=== PATIENT | female | born 1980 | race Caucasian/White ===

== ENCOUNTER → 2016-08-12 07:43 | Outpatient (CLI) | payer MEDICARE ==
[2009-11-29 08:10] VITALS: BMI 13.1
== END | disposition home or self-care (01) ==
LOC: D.CT 07:43
DX: R93.8 Abnormal findings on diagnostic imaging of other specified body structures (principal)

== ENCOUNTER 2016-08-23 18:17 | Emergency (ER) | payer MEDICARE ==
[2009-11-29 08:10] VITALS: BMI 13.1
[2016-08-23 20:05] LABS: BASOPHILS 0.1 % (0.0-2.0); EOSINOPHILS 0 % (0-7); HEMATOCRIT 39.2 % (36.0-48.0); HEMOGLOBIN 13.1 g/dL (12-16); IMMATURE GRANULOCYTES 0.2 % (0-5); LYMPHOCYTES 4.9 % (15-50); MCH 29.8 pg (26.0-34.0); MCHC 33.4 g/dL (31.0-37.0); MCV 89.1 fL (80.0-100.0); MONOCYTES 2.4 % (2-11); NEUTROPHILS 92.4 % (40-80); RDW 12.5 % (11.5-14.5)
[2016-08-23 20:08] LABS: PLATELET COUNT 203 10x3/uL (130-400)
[2016-08-23 20:26] LABS: ALBUMIN 4.5 g/dL (3.4-5.0); ALKALINE PHOSPHATASE 74 U/L (46-116); ALT (SGPT) 20 U/L (10-68); BILIRUBIN - TOTAL 1.91 mg/dL (0.2-1.3); CALC OSMOLALITY 285 mosm/kg (275-300); CALCIUM 9.2 mg/dL (8.5-10.1); CARBON DIOXIDE 26.2 mmol/L (21.0-32.0); CHLORIDE - SERUM 103 mmol/L (98-107); CREATININE - SERUM 0.8 mg/dL (0.6-1.3); POTASSIUM - SERUM 3.4 mmol/L (3.5-5.1); PROTEIN - SERUM 7.8 g/dL (6.4-8.2); SODIUM 142 mmol/L (136-145); UREA NITROGEN 13 mg/dL (7-18); eGFR NON AFRICAN AMERICAN 86 mL/min (90-120)
[2016-08-23 20:27] LABS: GLUCOSE 148 mg/dL (74-106)
[2016-08-23 20:52] LABS: APPEARANCE HAZY (CLEAR); BILIRUBIN NEGATIVE (NEGATIVE); COLOR YELLOW (YELLOW); GLUCOSE NEGATIVE (NEGATIVE); HCG URINE NEGATIVE (NEGATIVE); KETONE LARGE mg/dL (NEGATIVE); LEUKOCYTE ESTERASE TRACE (NEGATIVE); NITRITE NEGATIVE (NEGATIVE); PROTEIN TRACE mg/dL (NEGATIVE); UROBILINOGEN NORMAL (NORMAL)
[2016-08-23 20:55] LABS: BACTERIA MODERATE /hpf (NONE SEEN); MUCUS >1+ /lpf (NONE SEEN); RED CELLS - URINE 0-5 /hpf (0-5)
== END 2016-08-23 21:22 | disposition home or self-care (01) ==
LOC: D.ER 18:17
PROVIDERS: Emergency Medicine; Nurse Practitioner Acute Care
DX: K52.9 Noninfective gastroenteritis and colitis, unspecified (principal); E87.6 Hypokalemia

== ENCOUNTER 2017-07-14 15:29 | Emergency (ER) | payer MEDICARE ==
[2009-11-29 08:10] VITALS: BMI 13.1
== END 2017-07-14 16:28 | disposition home or self-care (01) ==
LOC: D.ER 15:29
DX: J06.9 Acute upper respiratory infection, unspecified (principal); J20.9 Acute bronchitis, unspecified

== ENCOUNTER 2017-07-18 17:50 | Emergency (ER) | payer MEDICARE ==
[2009-11-29 08:10] VITALS: BMI 13.1
[2017-07-18 18:21] LABS: HEMATOCRIT 40.4 % (36.0-48.0); HEMOGLOBIN 13.8 g/dL (12-16); LYMPHOCYTES 20.6 % (15-50); MCH 29.7 pg (26.0-34.0); MCHC 34.2 g/dL (31.0-37.0); MCV 86.9 fL (80.0-100.0); MEAN PLATELET VOLUME 12.5 fL (7.4-10.4); NEUTROPHILS 69.6 % (40-80); RBC 4.65 10x6/uL (4.00-5.40); RDW 12.8 % (11.5-14.5); WBC 5.5 10x3/uL (4.8-10.8)
[2017-07-18 18:23] LABS: PLATELET COUNT 114 10x3/uL (130-400)
== END 2017-07-18 20:00 | disposition home or self-care (01) ==
LOC: D.ER 17:50
PROVIDERS: Emergency Medicine
DX: J11.1 Influenza due to unidentified influenza virus with other respiratory manifestations (principal)

== ENCOUNTER 2018-04-02 23:27 | Emergency (ER) | payer MEDICARE ==
[~2018-04-02] VITALS: Ht 175.3 cm; Wt 45.5 kg
[2018-04-02 23:34] VITALS: Ht 175.3 cm; Wt 45.5 kg
[2018-04-02 23:55] LABS: BASOPHILS 0 % (0-2); EOSINOPHILS 0 % (0-7); HEMATOCRIT 41.1 % (36.0-48.0); HEMOGLOBIN 14.1 g/dL (12-16); IMMATURE GRANULOCYTES 0.3 % (0-5); LYMPHOCYTES 3.5 % (15-50); MCH 30.4 pg (26.0-34.0); MCHC 34.3 g/dL (31.0-37.0); MCV 88.6 fL (80.0-100.0); MEAN PLATELET VOLUME 12.6 fL (7.4-10.4); MONOCYTES 2.2 % (2-11); RBC 4.64 10x6/uL (4.00-5.40); RDW 12.3 % (11.5-14.5); WBC 13.4 10x3/uL (4.8-10.8)
[2018-04-02 23:57] LABS: PLATELET COUNT 187 10x3/uL (130-400)
[2018-04-03 00:08] LABS: ALBUMIN 4.4 g/dL (3.4-5.0); ANION GAP 17.1 mmol/L (8-16); BILIRUBIN - TOTAL 1.6 mg/dL (0.2-1.3); CALCIUM 9.2 mg/dL (8.5-10.1); CARBON DIOXIDE 22.5 mmol/L (21.0-32.0); POTASSIUM - SERUM 3.6 mmol/L (3.5-5.1)
[2018-04-03 01:03] LABS: AMORPHOUS SEDIMENT <1+ /lpf (NONE SEEN); APPEARANCE HAZY (CLEAR); BACTERIA MODERATE /hpf (NONE SEEN); BILIRUBIN NEGATIVE (NEGATIVE); COLOR DK YELLOW (YELLOW); EPITHELIAL CELLS 0-5 /hpf (0-5); GLUCOSE NEGATIVE (NEGATIVE); KETONE MODERATE mg/dL (NEGATIVE); MUCUS >1+ /lpf (NONE SEEN); NITRITE NEGATIVE (NEGATIVE); PROTEIN NEGATIVE (NEGATIVE); UROBILINOGEN NORMAL (NORMAL); WHITE CELLS - URINE 0-5 /hpf (0-5)
[2018-04-03 01:21] VITALS: BP 121/71
[2018-04-03] MEDS ORDERED: FLAGYL500 MG PO (01:31)
[2018-04-03] MEDS ORDERED: CIPRO500 MG PO (01:31)
[2018-04-03] MEDS ORDERED: ZOFRAN ODT4 MG/UDTAB PO (01:31)
[2018-04-03] MEDS ORDERED: PHENERGAN25 MG RC (18:20)
== END 2018-04-03 01:21 | disposition home or self-care (01) ==
LOC: D.ER 23:27
PROVIDERS: Emergency Medicine
DX: K52.9 Noninfective gastroenteritis and colitis, unspecified (principal); R11.2 Nausea with vomiting, unspecified

== ENCOUNTER 2018-04-03 15:40 | Emergency (ER) | payer MEDICARE ==
[~2018-04-03] VITALS: Ht 175.3 cm; Wt 44.5 kg
[~2018-04-03 15:40] MED LIST: CIPRO500 MG PO; FLAGYL500 MG PO; ZOFRAN ODT4 MG/UDTAB PO
[2018-04-03 15:49] VITALS: Ht 175.3 cm; Wt 44.5 kg
[2018-04-03 16:28] LABS: BASOPHILS 0.2 % (0-2); EOSINOPHILS 0 % (0-7); HEMATOCRIT 41.1 % (36.0-48.0); IMMATURE GRANULOCYTES 0.2 % (0-5); LYMPHOCYTES 6.9 % (15-50); MCH 30.5 pg (26.0-34.0); MCHC 34.1 g/dL (31.0-37.0); MCV 89.5 fL (80.0-100.0); MEAN PLATELET VOLUME 12.7 fL (7.4-10.4); MONOCYTES 4.6 % (2-11); NEUTROPHILS 88.1 % (40-80); PLATELET COUNT 210 10x3/uL (130-400); RBC 4.59 10x6/uL (4.00-5.40); RDW 12.5 % (11.5-14.5)
[2018-04-03 16:43] LABS: ALBUMIN 4.7 g/dL (3.4-5.0); ALKALINE PHOSPHATASE 68 U/L (46-116); ALT (SGPT) 36 U/L (10-68); CALC OSMOLALITY 284 mosm/kg (275-300); CALCIUM 9.3 mg/dL (8.5-10.1); CARBON DIOXIDE 24.3 mmol/L (21.0-32.0); CHLORIDE - SERUM 103 mmol/L (98-107); CREATININE - SERUM 0.8 mg/dL (0.6-1.3); POTASSIUM - SERUM 3.4 mmol/L (3.5-5.1); PROTEIN - SERUM 8.2 g/dL (6.4-8.2); SODIUM 142 mmol/L (136-145); UREA NITROGEN 14 mg/dL (7-18); eGFR NON AFRICAN AMERICAN 86 mL/min (90-120)
[2018-04-03 16:46] LABS: GLUCOSE 120 mg/dL (74-106)
[2018-04-03 17:01] LABS: HCG SERUM NEGATIVE (NEGATIVE)
[2018-04-03 17:04] LABS: APTT 26.1 SECONDS (22.8-39.4); INR 1.17 (0.85-1.17); PROTIME 14.5 SECONDS (11.6-15.0)
[2018-04-03] MEDS ORDERED: PHENERGAN25 MG RC (18:20)
[2018-04-03 18:26] LABS: APPEARANCE CLEAR (CLEAR); COLOR YELLOW (YELLOW); GLUCOSE NEGATIVE (NEGATIVE); KETONE LARGE mg/dL (NEGATIVE); NITRITE NEGATIVE (NEGATIVE); PROTEIN 1+ mg/dL (NEGATIVE); SPECIFIC GRAVITY 1.015 (1.005-1.020)
[2018-04-03 18:27] LABS: BILIRUBIN NEGATIVE (NEGATIVE); UROBILINOGEN NORMAL (NORMAL)
[2018-04-03 18:29] LABS: BACTERIA FEW /hpf (NONE SEEN); EPITHELIAL CELLS 0-5 /hpf (0-5); RED CELLS - URINE 0-5 /hpf (0-5); WHITE CELLS - URINE 0-5 /hpf (0-5)
[2018-04-03 18:59] VITALS: BP 105/68
== END 2018-04-03 18:59 | disposition home or self-care (01) ==
LOC: D.ER 15:40
PROVIDERS: Family Medicine
DX: R11.2 Nausea with vomiting, unspecified (principal); F12.188 Cannabis abuse with other cannabis-induced disorder

== ENCOUNTER 2019-08-16 16:57 | Emergency (ER) | payer MEDICARE, MEDICAID ==
[~2019-08-16] VITALS: Ht 175.3 cm; Wt 54.5 kg
[~2019-08-16 16:57] MED LIST changes: +PHENERGAN25 MG RC
[2019-08-16 17:07] VITALS: Ht 175.3 cm; Wt 54.5 kg
[2019-08-16 17:31] LABS: BASOPHILS 0.1 % (0-2); EOSINOPHILS 0 % (0-7); HEMATOCRIT 40.6 % (36.0-48.0); HEMOGLOBIN 13.7 g/dL (12-16); IMMATURE GRANULOCYTES 0.2 % (0-5); LYMPHOCYTES 5.9 % (15-50); MCH 29.8 pg (26.0-34.0); MCHC 33.7 g/dL (31.0-37.0); MCV 88.3 fL (80.0-100.0); MEAN PLATELET VOLUME 12.2 fL (7.4-10.4); NEUTROPHILS 86.8 % (40-80); PLATELET COUNT 247 10x3/uL (130-400); RDW 12.9 % (11.5-14.5); WBC 13.3 10x3/uL (4.8-10.8)
[2019-08-16 17:37] LABS: BACTERIA MODERATE /hpf (NEGATIVE); BILIRUBIN NEGATIVE (NEGATIVE); EPITHELIAL CELLS 0-5 /hpf (0-5); GLUCOSE NEGATIVE (NEGATIVE); KETONE MODERATE mg/dL (NEGATIVE); NITRITE NEGATIVE (NEGATIVE); RED CELLS - URINE 0-5 /hpf (0-5); SPECIFIC GRAVITY 1.025 (1.005-1.020); UROBILINOGEN NORMAL (NORMAL); WHITE CELLS - URINE 0-5 /hpf (NEGATIVE)
[2019-08-16 17:41] LABS: ANION GAP 17.7 mmol/L (8-16); CALCIUM 9.2 mg/dL (8.5-10.1); CARBON DIOXIDE 21.8 mmol/L (21.0-32.0); CREATININE - SERUM 0.9 mg/dL (0.6-1.3); POTASSIUM - SERUM 3.5 mmol/L (3.5-5.1)
[2019-08-16 17:54] LABS: ALBUMIN 4.6 g/dL (3.4-5.0); BILIRUBIN - TOTAL 2.12 mg/dL (0.2-1.3)
[2019-08-16] MEDS ORDERED: ZOFRAN ODT4 MG/UDTAB PO (19:12)
[2019-08-16] MEDS ORDERED: BENTYL 20 MG TA20 MG PO (19:12)
[2019-08-16 19:36] VITALS: BP 141/83
== END 2019-08-16 19:36 | disposition home or self-care (01) ==
LOC: D.ER 16:57
PROVIDERS: Emergency Medicine
DX: R11.2 Nausea with vomiting, unspecified (principal); R19.7 Diarrhea, unspecified; R10.11 Right upper quadrant pain; A08.4 Viral intestinal infection, unspecified

== ENCOUNTER 2019-08-17 06:57 | Observation (INO) | payer MEDICARE, MEDICAID ==
[~2019-08-17] VITALS: Ht 175.3 cm; Wt 54.5 kg
[~2019-08-17 06:57] MED LIST changes: +BENTYL 20 MG TA20 MG PO
[2019-08-17 07:50] LABS: BASOPHILS 0.1 % (0-2); EOSINOPHILS 0.1 % (0-7); HEMATOCRIT 42.5 % (36.0-48.0); HEMOGLOBIN 14.3 g/dL (12-16); IMMATURE GRANULOCYTES 0.1 % (0-5); LYMPHOCYTES 5.9 % (15-50); MCH 29.9 pg (26.0-34.0); MCHC 33.6 g/dL (31.0-37.0); MCV 88.9 fL (80.0-100.0); MEAN PLATELET VOLUME 12.4 fL (7.4-10.4); MONOCYTES 5.8 % (2-11); PLATELET COUNT 272 10x3/uL (130-400); RBC 4.78 10x6/uL (4.00-5.40); RDW 12.8 % (11.5-14.5); WBC 14.1 10x3/uL (4.8-10.8)
[2019-08-17 07:55] LABS: ANION GAP 15.7 mmol/L (8-16); CALCIUM 9.2 mg/dL (8.5-10.1); CARBON DIOXIDE 22.7 mmol/L (21.0-32.0); CREATININE - SERUM 1.1 mg/dL (0.6-1.3); POTASSIUM - SERUM 3.4 mmol/L (3.5-5.1)
[2019-08-17 08:00] VITALS: BP 121/78
[2019-08-17 08:00] LABS: ALBUMIN 4.7 g/dL (3.4-5.0); BILIRUBIN - TOTAL 2.42 mg/dL (0.2-1.3); PROTEIN - SERUM 8.1 g/dL (6.4-8.2)
[2019-08-17 09:00] VITALS: BP 140/89
--- NOTE | 2019-08-17 10:59 | NUR ---
RCVED PT FROM ER, COMPLAINING OF N/V BUT STATES IT BETTER SINCE SHE RCVED MEDS IN THE ER. DENIES NEEDS AT THIS TIME, WILL CONT TO MONITOR.
[2019-08-17 11:33] VITALS: BP 109/64; Ht 175.3 cm; Wt 54.5 kg
[2019-08-17 16:16] VITALS: BP 111/78
[2019-08-17 20:00] VITALS: BP 128/68
--- NOTE | 2019-08-17 20:30 | NUR ---
PT LYING IN BE AWAKE ALERT AND ORIENTED x4. NO SIGNS OR SYMPTOMS OF DISTRESS NOTED. RESPIRATIONS EVEN AND UNLABORED. NO COMPLAINTS AT THIS TIME. PT STATED LAST BOWELL MOVEMENT WAS 08/16/19. CALL LIGHT WITH IN REACH AND BED IS IN LOWEST POSITON. PT ENCOURAGED TO CALL FOR HELP WHEN NEEDED. WILL CONTIUE TO MONITOR
--- NOTE | 2019-08-17 21:45 | NUR ---
PT REQUEST TO TAKE SHOWER. IV SALINE LOCKED AND COVERED. NO SIGNS OF DISTRESS. PT INSTRUCTED HOW TO USE BATHROOM CALL LIGHT. GAIT IS STEADY. WILL CONTINUE TO MONITOR.
[2019-08-18] VITALS: BP 100/57
--- NOTE | 2019-08-18 02:40 | NUR ---
PRN PAIN MEDICATION AND COMPAZINE GIVEN. FOR PAIN LEVEL 7/10. PT TOLERATING WELL NO SIGNS OF DISTRESS NOTED. CALL LIGHT WITH IN REACH AND BED IS IN LOWEST POSITON. WILL CONTINUE TO MOITOR.
[2019-08-18 04:00] VITALS: BP 129/78
--- NOTE | 2019-08-18 04:22 | NUR ---
I have reviewed this patient and I concur with the Shift Assessment completed by the Licensed Practical Nurse today this shift.
--- NOTE | 2019-08-18 05:16 | NUR ---
I have reviewed this patient and I concur with the Shift Assessment completed by the Licensed Practical Nurse today this shift.
[2019-08-18 05:57] LABS: BASOPHILS 0.2 % (0-2); EOSINOPHILS 0.1 % (0-7); HEMATOCRIT 35.5 % (36.0-48.0); HEMOGLOBIN 11.4 g/dL (12-16); IMMATURE GRANULOCYTES 0.2 % (0-5); LYMPHOCYTES 27.6 % (15-50); MCH 29.4 pg (26.0-34.0); MCHC 32.1 g/dL (31.0-37.0); MCV 91.5 fL (80.0-100.0); MEAN PLATELET VOLUME 12.3 fL (7.4-10.4); MONOCYTES 10.6 % (2-11); NEUTROPHILS 61.3 % (40-80); PLATELET COUNT 180 10x3/uL (130-400); RBC 3.88 10x6/uL (4.00-5.40); RDW 12.9 % (11.5-14.5); WBC 10.1 10x3/uL (4.8-10.8)
--- NOTE | 2019-08-18 06:02 | NUR ---
prn pain medication and compazinegiven for pain and neasua. pt encouraged to call for help when getting in and out of bed. call light with in reach will continue to monitor
[2019-08-18 06:26] LABS: CALCIUM 8.4 mg/dL (8.5-10.1); CARBON DIOXIDE 23.5 mmol/L (21.0-32.0); CHLORIDE - SERUM 111 mmol/L (98-107); POTASSIUM - SERUM 3.6 mmol/L (3.5-5.1); SODIUM 148 mmol/L (136-145); UREA NITROGEN 18 mg/dL (7-18); eGFR NON AFRICAN AMERICAN 85 mL/min (90-120)
[2019-08-18 06:29] LABS: CALC OSMOLALITY 294 mosm/kg (275-300); CREATININE - SERUM 0.8 mg/dL (0.6-1.3); GLUCOSE 89 mg/dL (74-106)
--- NOTE | 2019-08-18 06:55 | NUR ---
ALERT AND ORIENTED. NO C/O PAIN. NO S/S OF ACUTE DISTRESS NOTED. STRICT I&O. IV TO LEFT HAND, NS INFUSING @ 100ML/HR. SITE PATENT WITHOUT REDNESS OR SWELLING. DENIES ANY NEEDS AT THIS TIME. CALL LIGHT IN REACH. WILL CONTINUE TO MONITOR.
[2019-08-18 08:24] VITALS: BP 110/61
--- NOTE | 2019-08-18 09:33 | NUR ---
I have reviewed this patient and I concur with the Shift Assessment completed by the Licensed Practical Nurse today this shift.
--- NOTE | 2019-08-18 10:35 | NUR ---
IV TO LEFT HAND INFILTRATED. DISCONTINUED IV, CATHETER TIP INTACT. RESITED IV TO RIGHT FOREARM, 22 GA X STICK WITH GOOD BLOOD RETURN. APPLIED WARM PACK TO LEFT HAND. CALL LIGHT IN REACH. WILL CONTINUE TO MONITOR.
[2019-08-18] MEDS ORDERED: ZOFRAN ODT4 MG/UDTAB PO (11:08)
[2019-08-18] MEDS ORDERED: PROTONIX40 MG PO (11:08)
[2019-08-18 12:10] VITALS: BP 121/79
--- NOTE | 2019-08-18 12:22 | NUR ---
ALL DISCHARGE INSTRUCTIONS COVERED WITH PT AND PT FRIEND AT BEDSIDE. PIV REMOVED FROM RIGHT FA WITH CATHETER TIP INTACT. DRESSING APPLIED. PT DENIES FURTHER QUESTIONS/CONCERNS/NEEDS AT THIS TIME. ALL DISCHARGE PAPERS SIGNED. SIGNED DISCHARGE PAPERS PLACED IN PT CHART. PT TO NOTIFY NURSE WHEN READY FOR TRANSPORT FROM ROOM.
--- NOTE | 2019-08-18 12:30 | NUR ---
PT TRANSPORTED FROM ROOM VIA WHEELCHAIR AND ESCORTED BY THIS NURSE OUT FOR TRANSPORT HOME. PT DENIES FURTHER QUESTIONS/CONCERNS/NEEDS. PT STATES THAT SHE DOES HAVE ALL PERSONAL BELONGINGS.
--- NOTE | 2019-08-19 12:50 | MORECARE ---
CASE MANAGEMENT DISCHARGE SUMMARY PATIENT: ALEENA LOPEZ UNIT: [id number] ADM DATE: 08/17/19 AGE: 38 : 82 SEX: F ROOM/BED: D.[facility] AUTHOR: OSMEL HARRIS PHYSICIAN: REFERRING PHYSICIAN: HARMAN HARTMAN MD DATE OF SERVICE: 08/19/19 Discharge Plan Patient Name: ALEENA LOPEZ Facility: [facility]:[place] : 1980 Planned Disposition: Anticipated Discharge Date: Discharge Date: 08/18/2019 Expected LOS: Initial Reviewer: [id number] Initial Review Date: 08/17/2019 Generated: 08/19/19 1:50 pm Coverage Notice Reviewer: [email or web address] Matt Castillo Notice Issued Date-Time: 08/17/2019 16:13 Notice Type: Medicare Outpatient Observation Notice Notice Delivered To: Patient Relationship to Patient: Self Optical Lab Technician Name: Delivery Method: HAND - Hand Delivered Geni Days: Prior Verbal Notification: Recipient Understood Notice: Yes Recipient Signature: Yes Med Rec Note Co-signed by Attending: Coverage Notice Comment: CIPRIANO explained, signed, given, copy placed in MR Patient Name: ALEENA LOPEZ Page [phone] at 1250 All edits/amendments must be made on the electronic document DICTATION DATE: 08/19/19 1250 PRISON KEEPER: DM 08/19/19 1250 RPT#: [id number] DC DATE:08/18/19 STATUS: DIS IN [facility] [id number] [place] [address] END OF REPORT
== END 2019-08-18 13:08 | disposition home or self-care (01) ==
LOC: D.ER 06:57 → OBSVTIME 09:32 → D.MS 09:32
PROVIDERS: Family Medicine; ADMIT Emergency Medicine; ATTEND Emergency Medicine
DX: K52.9 Noninfective gastroenteritis and colitis, unspecified (principal); R11.2 Nausea with vomiting, unspecified; E86.0 Dehydration; F12.90 Cannabis use, unspecified, uncomplicated

== ENCOUNTER 2019-09-20 19:00 | Emergency (ER) | payer MEDICARE, MEDICAID ==
[2019-08-17 11:33] VITALS: BMI 17.7
[~2019-09-20 19:00] MED LIST changes: +PROTONIX40 MG PO
[2019-09-21] MEDS ORDERED: ZOFRAN8 MG PO (10:37)
== END 2019-09-20 19:25 | disposition left against medical advice (07) ==
LOC: D.ER 19:00
DX: R11.2 Nausea with vomiting, unspecified (principal); R19.7 Diarrhea, unspecified

== ENCOUNTER 2019-09-21 07:06 | Emergency (ER) | payer MEDICARE, MEDICAID ==
[2019-08-17 11:33] VITALS: Ht 175.3 cm; Wt 54.5 kg
[~2019-09-21] VITALS: Ht 175.3 cm; Wt 54.5 kg
[2019-09-21 07:27] LABS: BASOPHILS 0.1 % (0-2); EOSINOPHILS 0 % (0-7); HEMATOCRIT 42.2 % (36.0-48.0); HEMOGLOBIN 14.2 g/dL (12-16); IMMATURE GRANULOCYTES 0.3 % (0-5); MCH 29.8 pg (26.0-34.0); MCHC 33.6 g/dL (31.0-37.0); MCV 88.5 fL (80.0-100.0); MONOCYTES 5.8 % (2-11); NEUTROPHILS 87.8 % (40-80); RBC 4.77 10x6/uL (4.00-5.40); RDW 12.8 % (11.5-14.5); WBC 11.6 10x3/uL (4.8-10.8)
[2019-09-21 07:37] LABS: PLATELET COUNT 258 10x3/uL (130-400)
[2019-09-21 07:46] LABS: CALC OSMOLALITY 289 mosm/kg (275-300); CALCIUM 9.7 mg/dL (8.5-10.1); CARBON DIOXIDE 21.6 mmol/L (21.0-32.0); CHLORIDE - SERUM 103 mmol/L (98-107); CREATININE - SERUM 1.1 mg/dL (0.6-1.3); POTASSIUM - SERUM 3.6 mmol/L (3.5-5.1); SODIUM 143 mmol/L (136-145); UREA NITROGEN 18 mg/dL (7-18); eGFR NON AFRICAN AMERICAN 59 mL/min (90-120)
[2019-09-21 07:49] LABS: GLUCOSE 148 mg/dL (74-106)
[2019-09-21 07:50] LABS: ALBUMIN 5.1 g/dL (3.4-5.0); ALKALINE PHOSPHATASE 107 U/L (30-120); ALT (SGPT) 22 U/L (10-68); AMYLASE - SERUM 126 U/L (25-115); LIPASE 59 U/L (73-393); PROTEIN - SERUM 8.5 g/dL (6.4-8.2); TROPONIN-I < 0.017 ng/mL (0.000-0.060)
[2019-09-21 08:31] LABS: HCG URINE NEGATIVE (NEGATIVE)
[2019-09-21 08:39] LABS: AMORPHOUS SEDIMENT >1+ /lpf (NONE SEEN); BACTERIA FEW /hpf (NEGATIVE); BILIRUBIN NEGATIVE (NEGATIVE); EPITHELIAL CELLS OCC /hpf (0-5); GLUCOSE 50 mg/dL (NEGATIVE); KETONE MODERATE mg/dL (NEGATIVE); NITRITE NEGATIVE (NEGATIVE); RED CELLS - URINE OCC /hpf (0-5); SPECIFIC GRAVITY 1.025 (1.005-1.020); UROBILINOGEN NORMAL (NORMAL); WHITE CELLS - URINE RARE /hpf (NEGATIVE)
[2019-09-21] MEDS ORDERED: ZOFRAN8 MG PO (10:37)
[2019-09-21 10:47] VITALS: BP 116/77
== END 2019-09-21 10:50 | disposition home or self-care (01) ==
LOC: D.ER 07:06
PROVIDERS: Family Medicine
DX: R11.2 Nausea with vomiting, unspecified (principal); R10.9 Unspecified abdominal pain

== ENCOUNTER 2019-09-22 05:51 | Inpatient (IN) | payer MEDICARE, MEDICAID ==
[~2019-09-22] VITALS: Ht 175.3 cm; Wt 54.4 kg
[~2019-09-22 05:51] MED LIST changes: +ZOFRAN8 MG PO
[2019-09-22 06:04] LABS: BASOPHILS 0.3 % (0-2); EOSINOPHILS 0.1 % (0-7); HEMATOCRIT 39.3 % (36.0-48.0); HEMOGLOBIN 12.9 g/dL (12-16); IMMATURE GRANULOCYTES 0.3 % (0-5); LYMPHOCYTES 24.1 % (15-50); MCH 29.2 pg (26.0-34.0); MCHC 32.8 g/dL (31.0-37.0); MCV 88.9 fL (80.0-100.0); MEAN PLATELET VOLUME 11.9 fL (7.4-10.4); MONOCYTES 11.2 % (2-11); PLATELET COUNT 270 10x3/uL (130-400); RBC 4.42 10x6/uL (4.00-5.40); RDW 12.7 % (11.5-14.5); WBC 11.7 10x3/uL (4.8-10.8)
[2019-09-22 06:28] LABS: ALBUMIN 4.4 g/dL (3.4-5.0); ALKALINE PHOSPHATASE 89 U/L (30-120); ALT (SGPT) 18 U/L (10-68); BILIRUBIN - TOTAL 2.86 mg/dL (0.2-1.3); CALC OSMOLALITY 281 mosm/kg (275-300); CARBON DIOXIDE 21.3 mmol/L (21.0-32.0); CHLORIDE - SERUM 103 mmol/L (98-107); GLUCOSE 141 mg/dL (74-106); LIPASE 62 U/L (73-393); PROTEIN - SERUM 7.5 g/dL (6.4-8.2); SODIUM 140 mmol/L (136-145); TROPONIN-I < 0.017 ng/mL (0.000-0.060); UREA NITROGEN 16 mg/dL (7-18); eGFR NON AFRICAN AMERICAN 66 mL/min (90-120)
[2019-09-22 06:34] LABS: AMYLASE - SERUM 71 U/L (25-115)
[2019-09-22 06:35] LABS: POTASSIUM - SERUM 2.9 mmol/L (3.5-5.1)
[2019-09-22 07:17] LABS: HCG URINE NEGATIVE (NEGATIVE)
[2019-09-22 07:31] LABS: BILIRUBIN NEGATIVE (NEGATIVE); GLUCOSE NEGATIVE (NEGATIVE); KETONE SMALL mg/dL (NEGATIVE); NITRITE NEGATIVE (NEGATIVE); SPECIFIC GRAVITY 1.025 (1.005-1.020)
[2019-09-22 07:32] LABS: BACTERIA MANY /hpf (NEGATIVE); RED CELLS - URINE 0-5 /hpf (0-5); WHITE CELLS - URINE RARE /hpf (NEGATIVE)
--- NOTE | 2019-09-22 07:38 | NUR ---
PT TO ROOM FROM ER VIA WHEELCHAIR. COMPLAINTS OF NAUSEA AND PAIN ON ARRIVAL. IVF INFUSING, K-RIDER INFUSING, ZOFRAN DRIP INFUSING.
--- NOTE | 2019-09-22 07:47 | NUR ---
JAIME AHUMADA NOTIFIED OF PT ARRIVAL TO FLOOR. ASKING ABOUT PAIN MEDS.
[2019-09-22 09:05] VITALS: BP 138/81
[2019-09-22 12:59] VITALS: BP 114/72
[2019-09-22 17:29] VITALS: BP 138/81; BMI 17.7
[2019-09-22 17:36] LABS: UDS - AMPHET NEGATIVE QUAL (NEGATIVE); UDS - BARB NEGATIVE QUAL (NEGATIVE); UDS - BENZO NEGATIVE QUAL (NEGATIVE); UDS - COCAINE NEGATIVE QUAL (NEGATIVE); UDS - OPIATE POSITIVE QUAL (NEGATIVE); UDS - PCP NEGATIVE QUAL (NEGATIVE); UDS - THC POSITIVE QUAL (NEGATIVE)
[2019-09-22 17:44] VITALS: BP 118/69
--- NOTE | 2019-09-22 19:10 | NUR ---
BEDSIDE REPORT RECEIVED, PT CARE ASSUMED. INTRODUCED SELF AND WROTE NAME ON BOARD. PT SITTING UP IN BED, WATCHING TV, AAOX4. DENIES ANY NEEDS AT THIS TIME. BED IN LOWEST POSITION, SR X2, CALL LIGHT WITHIN REACH. WILL CONTINUE TO MONITOR.
[2019-09-22 22:37] VITALS: BP 132/87
[2019-09-23 00:40] VITALS: BP 109/67
[2019-09-23 04:59] LABS: BASOPHILS 0.2 % (0-2); EOSINOPHILS 0.3 % (0-7); HEMATOCRIT 34.9 % (36.0-48.0); HEMOGLOBIN 11.5 g/dL (12-16); IMMATURE GRANULOCYTES 0.2 % (0-5); LYMPHOCYTES 21.9 % (15-50); MCH 29.3 pg (26.0-34.0); MEAN PLATELET VOLUME 12.1 fL (7.4-10.4); MONOCYTES 10.5 % (2-11); NEUTROPHILS 66.9 % (40-80); RBC 3.92 10x6/uL (4.00-5.40); RDW 12.8 % (11.5-14.5); WBC 9.3 10x3/uL (4.8-10.8)
[2019-09-23 05:00] LABS: PLATELET COUNT 205 10x3/uL (130-400)
[2019-09-23 05:08] LABS: HEPATITIS C ANTIBODY <0.1 S/CO RAT (0.0-0.9)
[2019-09-23 05:22] LABS: ALKALINE PHOSPHATASE 80 U/L (30-120); ALT (SGPT) 17 U/L (10-68); BILIRUBIN - TOTAL 2.25 mg/dL (0.2-1.3); CALCIUM 8.2 mg/dL (8.5-10.1); CARBON DIOXIDE 22.1 mmol/L (21.0-32.0); CHLORIDE - SERUM 104 mmol/L (98-107); GLUCOSE 113 mg/dL (74-106); PROTEIN - SERUM 6.9 g/dL (6.4-8.2); SODIUM 138 mmol/L (136-145)
[2019-09-23 05:26] LABS: CALC OSMOLALITY 275 mosm/kg (275-300); CREATININE - SERUM 0.7 mg/dL (0.6-1.3); UREA NITROGEN 10 mg/dL (7-18); eGFR NON AFRICAN AMERICAN > 90 mL/min (90-120)
--- NOTE | 2019-09-23 07:30 | NUR ---
PT RESTING, NO COMPLAINTS OR CONCERNS. HOPEFULL TO GO HOME TODAY, STATES SHE'S FEELING BETTER. ALL QUESTIONS ANSWERED TO THE BEST OF MY ABILITY. CL IN REACH, SRX2.
[2019-09-23 08:07] VITALS: BP 119/79
[2019-09-23] MEDS ORDERED: LEVOFLOXACIN500 MG PO (09:53)
[2019-09-23] MEDS ORDERED: FLAGYL500 MG PO (09:54)
[2019-09-23 09:55] VITALS: Ht 175.3 cm; Wt 54.4 kg
--- NOTE | 2019-09-23 10:38 | NUR ---
INFORMED PT THAT SHE HAD A DISCHARGE ORDER. PT IS HAPPY WITH THIS, DISCONECTED I/V. PT TOLERATING WELL.
--- NOTE | 2019-09-23 10:40 | MORECARE ---
CASE MANAGEMENT DISCHARGE SUMMARY PATIENT: ALEENA LOPEZ UNIT: [id number] ADM DATE: 09/22/19 AGE: 39 : 82 SEX: F ROOM/BED: D.2109 AUTHOR: STEVEN,DOC PHYSICIAN: REFERRING PHYSICIAN: ESME HERNANDEZ MD DATE OF SERVICE: 09/23/19 Discharge Plan Patient Name: ALEENA LOPEZ Facility: [facility]:[place] : 1980 Planned Disposition: Home or Self Care Anticipated Discharge Date: Discharge Date: Expected LOS: Initial Reviewer: [email or web address] Initial Review Date: 09/22/2019 Generated: 09/23/19 11:39 am Comments DCP- Discharge Planning Updated by [email or web address]: Awa Lantigua on 09/23/19 9:[address] Patient Name: ALEENA LOPEZ Admission Status: ER Accout number: [id number] Admission Date: 09-22-2019 : 1980 Admission Diagnosis: Attending: ESME HERNANDEZ Current LOS: 1 Anticipated DC Date: Planned Disposition: Home or Self Care Primary Insurance: [employer] MEDICARE ADV Discharge Planning Comments: CM spoke with patient about dc planning needs. Patient states that she is independent with her care at home. She denies any needs or concerns. Her spouse will be her ice cream truck driver home. She does not use any DME and feels safe to DC home today. CM will assist as needed Selenium Plant Operator: Awa Lantigua DCPIA - Discharge Planning Initial Assessment Updated by [email or web address]: Awa Lantigua on 09/23/19 10:38 am * Is the patient Alert and Oriented? Yes * How many steps to enter\exit or inside your home? STAIRS * PCP YOHANA * Pharmacy [facility] * Preadmission Environment Home with Family * ADLs Independent * Equipment None * List name and contact numbers for known caregivers / representatives who currently or will assist patient after discharge: CHRIS LOPEZ (SPOUSE) [phone] * Verbal permission to speak to the caregivers and representatives has been obtained from the patient. N/A * Community resources currently utilized None * Additional services required to return to the preadmission environment? No * Can the patient safely return to the preadmission environment? Yes * Has this patient been hospitalized within the prior 30 days at any hospital? No Patient Name: ALEENA LOPEZ Page [phone] at 1040 All edits/amendments must be made on the electronic document DICTATION DATE: 09/23/19 103 WOMEN'S GARMENT FITTER: KAMRAN 09/23/19 1039 RPT#: [id number] DC DATE: STATUS: ADM IN [facility] [address] [place] [address] END OF REPORT
--- NOTE | 2019-09-23 11:40 | NUR ---
PT ESCORTED OUT VIA WHEELCHIAR TO HUSBANDS POV.
--- NOTE | 2019-09-24 13:15 | MORECARE ---
CASE MANAGEMENT DISCHARGE SUMMARY PATIENT: ALEENA LOPEZ UNIT: [id number] ADM DATE: 09/22/19 AGE: 39 : 82 SEX: F ROOM/BED: D.210 AUTHOR: STEVENDOC PHYSICIAN: REFERRING PHYSICIAN: ESME HERNANDEZ MD DATE OF SERVICE: 09/24/19 Discharge Plan Patient Name: ALEENA LOPEZ Facility: [facility]:[place] : 1980 Planned Disposition: Home or Self Care Anticipated Discharge Date: Discharge Date: 09/23/2019 Expected LOS: 0 Initial Reviewer: [email or web address] Initial Review Date: 09/22/2019 Generated: 09/24/19 2:14 pm Comments DCP- Discharge Planning Updated by [email or web address]: Awa Lantigua on 09/23/19 9:[address] Patient Name: ALEENA LOPEZ Admission Status: ER Accout number: [id number] Admission Date: 09-22-2019 : 1980 Admission Diagnosis: Attending: ESME HERNANDEZ Current LOS: 1 Anticipated DC Date: Planned Disposition: Home or Self Care Primary Insurance: WE[employer] MEDICARE ADV Discharge Planning Comments: CM spoke with patient about dc planning needs. Patient states that she is independent with her care at home. She denies any needs or concerns. Her spouse will be her service car driver home. She does not use any DME and feels safe to DC home today. CM will assist as needed Equity Holder: Awa Lantigua DCPIA - Discharge Planning Initial Assessment Updated by [id number]: Awa Lantigua on 09/23/19 10:38 am * Is the patient Alert and Oriented? Yes * How many steps to enter\exit or inside your home? STAIRS * PCP YOHANA * Pharmacy [facility] * Preadmission Environment Home with Family * ADLs Independent * Equipment None * List name and contact numbers for known caregivers / representatives who currently or will assist patient after discharge: CHRIS LOPEZ (SPOUSE) [phone] * Verbal permission to speak to the caregivers and representatives has been obtained from the patient. N/A * Community resources currently utilized None * Additional services required to return to the preadmission environment? No * Can the patient safely return to the preadmission environment? Yes * Has this patient been hospitalized within the prior 30 days at any hospital? No Last DP export: 09/23/19 9:40 a Patient Name: ALEENA LOPEZ Page [phone] at 1315 All edits/amendments must be made on the electronic document DICTATION DATE: 09/24/19 1314 CONTINUOUS IMPROVEMENT COORDINATOR: KAMRAN 09/24/19 1314 RPT#: [id number] DC DATE:09/23/19 STATUS: DIS IN [facility] [address] [place] [address] END OF REPORT
== END 2019-09-23 11:40 | disposition home or self-care (01) | DRG 394 ==
LOC: D.ER 05:51 → D.M2 06:05
PROVIDERS: Family Medicine; ADMIT Internal Medicine Nephrology; ATTEND Internal Medicine Nephrology
DX: R11.15 Cyclical vomiting syndrome unrelated to migraine (principal); N39.0 Urinary tract infection, site not specified; E87.6 Hypokalemia; F12.90 Cannabis use, unspecified, uncomplicated

== ENCOUNTER 2019-10-08 13:47 | Observation (INO) | payer MEDICARE, MEDICAID ==
[~2019-10-08] VITALS: Ht 175.3 cm; Wt 54.5 kg
[~2019-10-08 13:47] MED LIST changes: +LEVOFLOXACIN500 MG PO
[2019-10-08 14:18] LABS: HEMATOCRIT 45.6 % (36.0-48.0); HEMOGLOBIN 14.9 g/dL (12-16); LYMPHOCYTES 4.3 % (15-50); MCH 28.8 pg (26.0-34.0); MCHC 32.7 g/dL (31.0-37.0); MCV 88.2 fL (80.0-100.0); MEAN PLATELET VOLUME 11.8 fL (7.4-10.4); NEUTROPHILS 92.8 % (40-80); PLATELET COUNT 224 10x3/uL (130-400); RBC 5.17 10x6/uL (4.00-5.40); RDW 13.1 % (11.5-14.5); WBC 11.1 10x3/uL (4.8-10.8)
[2019-10-08 14:23] LABS: ANION GAP 21.2 mmol/L (8-16); CALCIUM 9.3 mg/dL (8.5-10.1); CARBON DIOXIDE 17.5 mmol/L (21.0-32.0); CREATININE - SERUM 0.9 mg/dL (0.6-1.3); POTASSIUM - SERUM 3.7 mmol/L (3.5-5.1)
[2019-10-08 14:29] LABS: ALBUMIN 4.8 g/dL (3.4-5.0); BILIRUBIN - TOTAL 1.74 mg/dL (0.2-1.3); PROTEIN - SERUM 8.4 g/dL (6.4-8.2)
[2019-10-08 14:56] LABS: AMORPHOUS SEDIMENT <1+ /lpf (NONE SEEN); BACTERIA MANY /hpf (NEGATIVE); BILIRUBIN NEGATIVE (NEGATIVE); EPITHELIAL CELLS 0-5 /hpf (0-5); GLUCOSE 50 mg/dL (NEGATIVE); GRANULAR CAST OCC /lpf (NONE SEEN); HYALINE CAST 0-5 /lpf (NONE SEEN); KETONE LARGE mg/dL (NEGATIVE); NITRITE NEGATIVE (NEGATIVE); SPECIFIC GRAVITY 1.025 (1.005-1.020); UROBILINOGEN NORMAL (NORMAL); WHITE CELLS - URINE 0-5 /hpf (NEGATIVE)
[2019-10-08 15:09] LABS: UDS - AMPHET NEGATIVE QUAL (NEGATIVE); UDS - BARB NEGATIVE QUAL (NEGATIVE); UDS - BENZO NEGATIVE QUAL (NEGATIVE); UDS - COCAINE NEGATIVE QUAL (NEGATIVE); UDS - OPIATE NEGATIVE QUAL (NEGATIVE); UDS - PCP NEGATIVE QUAL (NEGATIVE); UDS - THC POSITIVE QUAL (NEGATIVE)
--- NOTE | 2019-10-08 16:45 | NUR ---
RECEIVED PATIENT FROM ER. ALERT AND ORIENTED. C/O ABDOMINAL PAIN. NO S/S OF ACUTE DISTRESS NOTED. UP AD EBONY. 20GA PERIPHERAL IV TO LEFT WRIST, NS INFUSING @ 75ML/HR AND ZOFRAN @ 4.7ML/HR. SITE PATENT WITHOUT REDNESS OR SWELLING. ON CLEAR LIQUID DIET. POSITIVE FOR THC. NPO AFTER MN, GASTRIC EMPTYING SCAN SCHEDULED FOR TOMORROW. DENIES ANY NEEDS AT THIS TIME. CALL LIGHT IN REACH. WILL CONTINUE TO MONITOR.
[2019-10-08 17:37] VITALS: BP 134/90
--- NOTE | 2019-10-08 18:12 | NUR ---
RESTING IN BED WITH EYES OPEN WATCHING TV. NO C/O PAIN. NO S/S OF ACUTE DISTRESS NOTED. DENIES ANY NEEDS AT THIS TIME. CALL LIGHT IN REACH. WILL CONTINUE TO MONITOR.
[2019-10-08 19:33] VITALS: BP 134/90; Ht 175.3 cm; Wt 54.5 kg
[2019-10-08 20:01] VITALS: BP 141/85
--- NOTE | 2019-10-08 21:11 | NUR ---
PT C/O ABDOMINAL PAIN 01/07. PAGED ZITA REDDY. GAVE DILAUDID 0.5 MG IV PUSH PER TELEPHONE ORDER. NO OTHER NEEDS. WILL REASSESS AND CONTINUE TO MONITOR.
[2019-10-09] VITALS: BP 138/80
[2019-10-09 04:00] VITALS: BP 116/66
[2019-10-09 05:22] LABS: HEMATOCRIT 39.7 % (36.0-48.0); LYMPHOCYTES 15.4 % (15-50); MCH 29.2 pg (26.0-34.0); MCHC 32.7 g/dL (31.0-37.0); MCV 89.2 fL (80.0-100.0); MEAN PLATELET VOLUME 11.9 fL (7.4-10.4); NEUTROPHILS 78.6 % (40-80); PLATELET COUNT 185 10x3/uL (130-400); RBC 4.45 10x6/uL (4.00-5.40); WBC 10.9 10x3/uL (4.8-10.8)
[2019-10-09 05:26] LABS: BILIRUBIN - TOTAL 1.88 mg/dL (0.2-1.3); CALCIUM 8.9 mg/dL (8.5-10.1); CREATININE - SERUM 0.9 mg/dL (0.6-1.3); POTASSIUM - SERUM 3.7 mmol/L (3.5-5.1); PROTEIN - SERUM 7.2 g/dL (6.4-8.2)
[2019-10-09 05:41] LABS: ANION GAP 13.6 mmol/L (8-16); CARBON DIOXIDE 24.1 mmol/L (21.0-32.0)
--- NOTE | 2019-10-09 07:33 | NUR ---
ALERT AND ORIENTED. LUNGS CLEAR BILATERALLY. HEART SOUNDS S1 AND S2 HEARD IN ALL DOS SANTOS. BOWEL SOUNDS ACTIVE X 4. SKIN INTACT WITHOUT REDNESS. IV TO LEFT WRIST PATENT WITHOUT REDNESS. DENIES PAIN. DENIES NEEDS. BED LOW. CALL CARRASCO AND PERSONAL ITEMS IN REACH. WILL CONTINUE TO MONITOR.
[2019-10-09 08:07] VITALS: BP 105/72
--- NOTE | 2019-10-09 09:37 | NUR ---
SPOKE WITH NUCLEAR MEDICINE. STATES CANNOT DO GASTRIC EMPTYING UNTIL 1500. STATES OK FOR PATIENT TO HAVE WATER TO SIP ON BUT CANNOT HAVE A LOT. STATES NOT TO GIVE PATIENT ANY PAIN MEDICATION. PATIENT EDUCATION PROVIDED AND SMALL CUP WATER GIVEN TO PATIENT. VERBALIZED UNDERSTANDING.
--- NOTE | 2019-10-09 11:31 | NUR ---
REQUESTING TO SPEAK WITH PLASTER APPLICATOR ABOUT GASTRIC EMPTYING. STATES DOES NOT WANT TO WAIT UNTIL 1500. STATES WILL TALK TO PLASTER APPLICATOR AND DECIDE IF WANTS TO HAVE TEST DONE. PLASTER APPLICATOR ON FLOOR AND NOTIFIED. STATES WILL SEE PATIENT.
[2019-10-09 11:50] VITALS: BP 110/71
--- NOTE | 2019-10-09 12:32 | NUR ---
PATIENT SPEAKING WITH ZITA LYNCH IN ROOM. REQUESTING TO SIGN AMA. AMA SIGNED. EMISSIONS REPAIR TECHNICIAN AWARE. CLOTH BLEACHING RANGE OPERATOR CHIEF MADE AWARE OF SITUATION. WILL COMPLETE CSSTARS.
--- NOTE | 2019-10-09 12:42 | NUR ---
CSSTARS COMPLETE AND FAXED TO SAMPLE ROOM SUPERVISOR. COPY PLACED IN NURSING SUPERVISORS MAIL BOX. IV REMOVED FROM PATIENT'S LEFT WRIST WITH TIP INTACT. PATIENT LEFT AMA WITH ALL BELONGINGS.
== END 2019-10-09 12:44 | disposition left against medical advice (07) ==
LOC: D.ER 13:47 → D.MS 15:44 → OBSVTIME 15:54 → D.MS 10-09 12:44
PROVIDERS: Family Medicine; ADMIT Internal Medicine Nephrology; ATTEND Internal Medicine Nephrology
DX: R11.15 Cyclical vomiting syndrome unrelated to migraine (principal); N39.0 Urinary tract infection, site not specified; F19.90 Other psychoactive substance use, unspecified, uncomplicated; E87.6 Hypokalemia

== ENCOUNTER 2019-11-26 09:34 | Emergency (ER) | payer MEDICARE, MEDICAID ==
[~2019-11-26] VITALS: Ht 175.3 cm; Wt 54.5 kg
[2019-11-26 09:39] VITALS: Ht 175.3 cm; Wt 54.5 kg
[2019-11-26 09:57] LABS: BILIRUBIN NEGATIVE (NEGATIVE); GLUCOSE NEGATIVE (NEGATIVE); KETONE LARGE mg/dL (NEGATIVE); NITRITE NEGATIVE (NEGATIVE); UROBILINOGEN NORMAL (NORMAL)
[2019-11-26 09:59] LABS: BASOPHILS 0.1 % (0-2); EOSINOPHILS 0.1 % (0-7); HEMATOCRIT 40.1 % (36.0-48.0); HEMOGLOBIN 13.4 g/dL (12-16); IMMATURE GRANULOCYTES 0.3 % (0-5); LYMPHOCYTES 9.3 % (15-50); MCH 29.5 pg (26.0-34.0); MCHC 33.4 g/dL (31.0-37.0); MCV 88.3 fL (80.0-100.0); MEAN PLATELET VOLUME 11.9 fL (7.4-10.4); MONOCYTES 8.9 % (2-11); NEUTROPHILS 81.3 % (40-80); RBC 4.54 10x6/uL (4.00-5.40); WHITE CELLS - URINE 0-5 /hpf (NEGATIVE)
[2019-11-26 10:00] LABS: BACTERIA FEW /hpf (NEGATIVE); EPITHELIAL CELLS 0-5 /hpf (0-5); RED CELLS - URINE 0-5 /hpf (0-5)
[2019-11-26 10:01] LABS: HCG URINE NEGATIVE (NEGATIVE); PLATELET COUNT 238 10x3/uL (130-400)
[2019-11-26 10:07] LABS: CALC OSMOLALITY 279 mosm/kg (275-300); CALCIUM 9.2 mg/dL (8.5-10.1); CARBON DIOXIDE 24.5 mmol/L (21.0-32.0); CHLORIDE - SERUM 104 mmol/L (98-107); CREATININE - SERUM 0.9 mg/dL (0.6-1.3); GLUCOSE 116 mg/dL (74-106); POTASSIUM - SERUM 3.5 mmol/L (3.5-5.1); SODIUM 139 mmol/L (136-145); UREA NITROGEN 16 mg/dL (7-18); eGFR NON AFRICAN AMERICAN 74 mL/min (90-120)
[2019-11-26 10:16] LABS: ALBUMIN 4.7 g/dL (3.4-5.0); ALKALINE PHOSPHATASE 91 U/L (30-120); ALT (SGPT) 19 U/L (10-68); AMYLASE - SERUM 273 U/L (25-115); BILIRUBIN - TOTAL 2.85 mg/dL (0.2-1.3); LIPASE 76 U/L (73-393); PROTEIN - SERUM 7.8 g/dL (6.4-8.2)
[2019-11-26 10:17] LABS: TROPONIN-I < 0.017 ng/mL (0.000-0.060)
[2019-11-26] MEDS ORDERED: COMPAZINE25 MG RC (11:47)
[2019-11-26 12:16] VITALS: BP 132/70
== END 2019-11-26 12:16 | disposition home or self-care (01) ==
LOC: D.ER 09:34
PROVIDERS: Family Medicine
DX: R11.15 Cyclical vomiting syndrome unrelated to migraine (principal); M79.7 Fibromyalgia

== ENCOUNTER 2019-12-10 11:48 | Emergency (ER) | payer MEDICARE, MEDICAID ==
[~2019-12-10] VITALS: Ht 175.3 cm; Wt 54.5 kg
[~2019-12-10 11:48] MED LIST changes: +COMPAZINE25 MG RC
[2019-12-10 11:56] VITALS: Ht 175.3 cm; Wt 54.5 kg
[2019-12-10] MEDS ORDERED: PROTONIX20 MG PO (11:57)
[2019-12-10] MEDS ORDERED: SHOT (11:57)
[2019-12-10] MEDS ORDERED: DEPO SHOT (11:57)
[2019-12-10 12:42] LABS: HEMATOCRIT 41.9 % (36.0-48.0); HEMOGLOBIN 13.9 g/dL (12-16); MCH 29.4 pg (26.0-34.0); MCHC 33.2 g/dL (31.0-37.0); MCV 88.6 fL (80.0-100.0); MEAN PLATELET VOLUME 11.3 fL (7.4-10.4); NEUTROPHILS 85.8 % (40-80); PLATELET COUNT 238 10x3/uL (130-400); RBC 4.73 10x6/uL (4.00-5.40); WBC 10.8 10x3/uL (4.8-10.8)
[2019-12-10 12:53] LABS: CALC OSMOLALITY 275 mosm/kg (275-300); CALCIUM 9.6 mg/dL (8.5-10.1); CHLORIDE - SERUM 101 mmol/L (98-107); GLUCOSE 149 mg/dL (74-106); POTASSIUM - SERUM 3.8 mmol/L (3.5-5.1); SODIUM 137 mmol/L (136-145); UREA NITROGEN 11 mg/dL (7-18); eGFR NON AFRICAN AMERICAN 66 mL/min (90-120)
[2019-12-10 13:01] LABS: ALBUMIN 4.5 g/dL (3.4-5.0); ALKALINE PHOSPHATASE 96 U/L (30-120); ALT (SGPT) 37 U/L (10-68); AMYLASE - SERUM 244 U/L (25-115); BILIRUBIN - TOTAL 2.26 mg/dL (0.2-1.3); LIPASE 61 U/L (73-393); MAGNESIUM - SERUM 2.2 mg/dL (1.8-2.4); PROTEIN - SERUM 8.1 g/dL (6.4-8.2)
[2019-12-10 13:06] LABS: TROPONIN-I < 0.017 ng/mL (0.000-0.060)
[2019-12-10 13:08] LABS: HCG SERUM NEGATIVE (NEGATIVE)
[2019-12-10 13:52] LABS: BILIRUBIN NEGATIVE (NEGATIVE); GLUCOSE NEGATIVE (NEGATIVE); KETONE MODERATE mg/dL (NEGATIVE); NITRITE NEGATIVE (NEGATIVE); UROBILINOGEN NORMAL (NORMAL)
[2019-12-10 13:53] LABS: RED CELLS - URINE 0-5 /hpf (0-5)
[2019-12-10 13:54] LABS: BACTERIA MODERATE /hpf (NEGATIVE)
[2019-12-10 14:38] VITALS: BP 128/75
[2019-12-11] MEDS ORDERED: PHENERGAN25 M1 PO (06:52)
== END 2019-12-10 15:38 | disposition home or self-care (01) ==
LOC: D.ER 11:48
PROVIDERS: Family Medicine
DX: N39.0 Urinary tract infection, site not specified (principal); R11.15 Cyclical vomiting syndrome unrelated to migraine; R07.0 Pain in throat

== ENCOUNTER 2019-12-11 06:47 | Observation (INO) | payer MEDICARE, MEDICAID ==
[~2019-12-11] VITALS: Ht 175.3 cm; Wt 55.5 kg
[~2019-12-11 06:47] MED LIST changes: +DEPO SHOT; +PROTONIX20 MG PO; +SHOT
[2019-12-11] MEDS ORDERED: PHENERGAN25 M1 PO (06:52)
--- NOTE | 2019-12-11 07:06 | NUR ---
ASSUMED CARE OF PT AT THIS TIME. URINE COLLECTED AND SENT TO LAB AT THIS TIME.
[2019-12-11 07:21] LABS: HEMATOCRIT 40.9 % (36.0-48.0); HEMOGLOBIN 13.5 g/dL (12-16); LYMPHOCYTES 12.4 % (15-50); MCH 29.3 pg (26.0-34.0); MCV 88.7 fL (80.0-100.0); MEAN PLATELET VOLUME 11.2 fL (7.4-10.4); NEUTROPHILS 77.2 % (40-80); PLATELET COUNT 239 10x3/uL (130-400); RBC 4.61 10x6/uL (4.00-5.40); RDW 13.2 % (11.5-14.5); WBC 10.4 10x3/uL (4.8-10.8)
[2019-12-11 07:22] LABS: CALCIUM 9.4 mg/dL (8.5-10.1); CARBON DIOXIDE 23.5 mmol/L (21.0-32.0); CHLORIDE - SERUM 104 mmol/L (98-107); CREATININE - SERUM 0.8 mg/dL (0.6-1.3); GLUCOSE 127 mg/dL (74-106); SODIUM 141 mmol/L (136-145); eGFR NON AFRICAN AMERICAN 85 mL/min (90-120)
[2019-12-11 07:26] LABS: CALC OSMOLALITY 284 mosm/kg (275-300); POTASSIUM - SERUM 3.2 mmol/L (3.5-5.1); UREA NITROGEN 18 mg/dL (7-18)
[2019-12-11 07:29] LABS: BACTERIA MANY /hpf (NEGATIVE); BILIRUBIN NEGATIVE (NEGATIVE); GLUCOSE NEGATIVE (NEGATIVE); KETONE MODERATE mg/dL (NEGATIVE); NITRITE NEGATIVE (NEGATIVE); RED CELLS - URINE 0-5 /hpf (0-5); SPECIFIC GRAVITY 1.025 (1.005-1.020); WHITE CELLS - URINE OCC /hpf (NEGATIVE)
[2019-12-11 07:31] LABS: ALBUMIN 4.5 g/dL (3.4-5.0); ALKALINE PHOSPHATASE 90 U/L (30-120); ALT (SGPT) 34 U/L (10-68); AMYLASE - SERUM 190 U/L (25-115); BILIRUBIN - TOTAL 3.19 mg/dL (0.2-1.3); LIPASE 65 U/L (73-393); PROTEIN - SERUM 7.7 g/dL (6.4-8.2); TROPONIN-I < 0.017 ng/mL (0.000-0.060)
[2019-12-11 07:59] LABS: HCG URINE NEGATIVE (NEGATIVE)
[2019-12-11 08:46] VITALS: BP 107/67
[2019-12-11 12:06] VITALS: BP 112/74
--- NOTE | 2019-12-11 12:52 | NUR ---
RECEIVED PT TO ROOM 2111. PT A/O X4, RESP EVEN AND NONLABORED ON RA. PT CONTINUES TO VOMIT, EVEN AFTER RECEIVING 4MG OF ZOFRAN IN THE ER. WILL PAGE TO SEE IF PT CAN HAVE SOMETHING ELSE FOR NAUSEA. PT WANTS TO GET IN THE SHOWER WILL ASSESS PT AND PROVIDE HER WITH SUPPLIES NEEDED FOR SHOWER.
[2019-12-11 12:56] VITALS: BP 125/71; BMI 17.7
[2019-12-11 14:50] LABS: APTT 27.6 SECONDS (22.8-39.4); INR 1.07 (0.85-1.17); PROTIME 13.9 SECONDS (11.6-15.0)
[2019-12-11 15:00] VITALS: BP 115/70
--- NOTE | 2019-12-11 15:09 | NUR ---
PT STATES NAUSEA IS MUCH BETTER NOW AFTER IM PHENERGAN. DENIES ANY NEEDS AT THIS TIME. CALL LIGHT IN REACH.
--- NOTE | 2019-12-11 19:00 | NUR ---
REPORT RECEIVED, WILL CONTINUE POC. PATIENT IS AAOX4, SITTING UP IN BED. NO S/S OF DISTRESS OBSERVED. RR EVEN AND UNLABORED ON ROOM AIR. PATIENT WANTS TO SHOWER. WILL WRAP IV SITE AND PROVIDE TOWELS AND TOILETRIES. PATIENT DENIES FURTHER NEEDS AT THIS TIME. CL IN REACH, BED LOCKED AND LOWERED. WILL CTM.
[2019-12-11 21:21] VITALS: BP 102/66
--- NOTE | 2019-12-11 22:25 | NUR ---
PATIENT C/O NAUSEA AND VOMITING. PRN ZOFRAN ADMINISTERED PER ORDERS.
--- NOTE | 2019-12-12 | NUR ---
PATIENT STILL C/O NAUSEA AND VOMITING. PAGED YANETH BURGESS APN. NEW ORDERS RECEIVED.
[2019-12-12 00:39] VITALS: BP 102/53
--- NOTE | 2019-12-12 00:47 | NUR ---
PATIENT WANTS TO SHOWER AGAIN. IV SITE WRAPPED, TOWELS PROVIDED.
--- NOTE | 2019-12-12 01:39 | NUR ---
PATIENT C/O ABDOMINAL PAIN. PAGED YANETH BURGESS APN, NEW ORDERS RECEIVED.
--- NOTE | 2019-12-12 05:00 | NUR ---
I have reviewed this patient and I concur with the Shift Assessment completed by the Licensed Practical Nurse today this shift.
[2019-12-12 06:27] VITALS: BP 111/69
[2019-12-12 06:48] LABS: ALKALINE PHOSPHATASE 67 U/L (30-120); BILIRUBIN - TOTAL 2.77 mg/dL (0.2-1.3); CALCIUM 7.8 mg/dL (8.5-10.1); CARBON DIOXIDE 22.5 mmol/L (21.0-32.0); CHLORIDE - SERUM 104 mmol/L (98-107); GLUCOSE 91 mg/dL (74-106); POTASSIUM - SERUM 3.2 mmol/L (3.5-5.1); SODIUM 136 mmol/L (136-145)
[2019-12-12 06:50] LABS: ALBUMIN 3.3 g/dL (3.4-5.0); ALT (SGPT) 24 U/L (10-68); CALC OSMOLALITY 269 mosm/kg (275-300); CREATININE - SERUM 0.5 mg/dL (0.6-1.3); PROTEIN - SERUM 5.5 g/dL (6.4-8.2); UREA NITROGEN 8 mg/dL (7-18); eGFR NON AFRICAN AMERICAN > 90 mL/min (90-120)
[2019-12-12 07:38] LABS: HEMATOCRIT 32.6 % (36.0-48.0); HEMOGLOBIN 10.8 g/dL (12-16); LYMPHOCYTES 22.8 % (15-50); MCH 29.6 pg (26.0-34.0); MCHC 33.1 g/dL (31.0-37.0); MCV 89.3 fL (80.0-100.0); MEAN PLATELET VOLUME 12.2 fL (7.4-10.4); NEUTROPHILS 68.4 % (40-80); PLATELET COUNT 175 10x3/uL (130-400); RBC 3.65 10x6/uL (4.00-5.40); RDW 12.7 % (11.5-14.5); WBC 8.2 10x3/uL (4.8-10.8)
[2019-12-12 08:22] VITALS: BP 128/71
[2019-12-12 11:57] VITALS: BP 106/65
[2019-12-12 12:52] VITALS: Ht 175.3 cm; Wt 55.5 kg
--- NOTE | 2019-12-12 13:58 | NUR ---
IV RESARTED TO RIGHT HAND WITH 20 GAUGE CATH X 1 STICK BY SANTOS CORRALES AND FLUSHED WITH NS. LINE IS PATENT.
--- NOTE | 2019-12-12 16:27 | MORECARE ---
CASE MANAGEMENT DISCHARGE SUMMARY PATIENT: ALEENA VANG UNIT: [id number] ADM DATE: 12/11/19 AGE: 39 : 82 SEX: F ROOM/BED: D.2112 AUTHOR: OSMEL HARRIS PHYSICIAN: REFERRING PHYSICIAN: PAUL SANCHEZ DO DATE OF SERVICE: 12/12/19 Discharge Plan Patient Name: ALEENA VANG [facility] [facility] 1980 Planned Disposition: Home or Self Care Anticipated Discharge Date: 12/13/19 Discharge Date: Expected LOS: 2 Initial Reviewer: [email or web address] Initial Review Date: 12/11/2019 Generated: 12/12/19 5:26 pm External Providers External Provider: [employer] Next Contact Date: Service Request Date: Service Type: Resolution: Reviewer: Comments: Coverage Notice Reviewer: [email or web address] Matt Tracy Notice Issued Date-Time: 12/12/2019 14:44 Notice Type: Medicare Outpatient Observation Notice Notice Delivered To: Patient Relationship to Patient: Self Motor Route Carrier Name: Lani Vang Delivery Method: HAND - Hand Delivered Geni Days: Prior Verbal Notification: Recipient Understood Notice: Yes Recipient Signature: Yes Med Rec Note Co-signed by Attending: Coverage Notice Comment: COTA delivered/signed by patient. Patient Name: ALEENA VANG Page [phone] at 1627 All edits/amendments must be made on the electronic document DICTATION DATE: 12/12/191625 JEWEL WAXER: KAMRAN 12/12/191625 RPT#: [id number] DC DATE: STATUS: ADM IN [facility] [address] [place] [address] END OF REPORT
[2019-12-12 16:32] VITALS: BP 104/72
--- NOTE | 2019-12-12 19:00 | NUR ---
REPORT RECEIVED, WILL CONTINUE POC. PATIENT IS AAOX4, SITTING UP IN BED. NO S/S OF DISTRESS OBSERVED, RR EVEN AND UNLABORED ON ROOM AIR. PATIENT DENIES NEEDS AT THIS TIME. CL IN REACH, BED LOCKED AND LOWERED. WILL CTM.
[2019-12-12 20:00] VITALS: BP 98/66
[2019-12-13 06:44] LABS: ALBUMIN 3.4 g/dL (3.4-5.0); ALKALINE PHOSPHATASE 73 U/L (30-120); ALT (SGPT) 23 U/L (10-68); BILIRUBIN - TOTAL 2.49 mg/dL (0.2-1.3); CALC OSMOLALITY 275 mosm/kg (275-300); CALCIUM 8.1 mg/dL (8.5-10.1); CARBON DIOXIDE 22.1 mmol/L (21.0-32.0); CHLORIDE - SERUM 105 mmol/L (98-107); GLUCOSE 91 mg/dL (74-106); PROTEIN - SERUM 5.9 g/dL (6.4-8.2); SODIUM 139 mmol/L (136-145); UREA NITROGEN 6 mg/dL (7-18)
[2019-12-13 07:00] LABS: CREATININE - SERUM 0.7 mg/dL (0.6-1.3); eGFR NON AFRICAN AMERICAN > 90 mL/min (90-120)
[2019-12-13 07:13] LABS: HEMATOCRIT 34.8 % (36.0-48.0); HEMOGLOBIN 11.8 g/dL (12-16); MCH 29.9 pg (26.0-34.0); MCHC 33.9 g/dL (31.0-37.0); MCV 88.1 fL (80.0-100.0); MEAN PLATELET VOLUME 11.7 fL (7.4-10.4); NEUTROPHILS 66.5 % (40-80); PLATELET COUNT 164 10x3/uL (130-400); RBC 3.95 10x6/uL (4.00-5.40); RDW 12.6 % (11.5-14.5); WBC 7.1 10x3/uL (4.8-10.8)
[2019-12-13 09:00] VITALS: BP 122/79
--- NOTE | 2019-12-13 13:00 | NUR ---
D/C INSTRUCTIONS REVIEWED WITH PT. VERBALIZED UNDERSTANDING. IV REMOVED WITH CATHETER TIP INTACT. PT DENIES WHEELCHAIR USE. AMBULATED OUT WITH ALL BELONGINGS.
--- NOTE | 2019-12-14 01:35 | MORECARE ---
CASE MANAGEMENT DISCHARGE SUMMARY PATIENT: ALEENA VANG UNIT: [id number] ADM DATE: 12/11/19 AGE: 39 : 82 SEX: F ROOM/BED: D.2112 AUTHOR: OSMEL HARRIS PHYSICIAN: REFERRING PHYSICIAN: PAUL SANCHEZ DO DATE OF SERVICE: 12/14/19 Discharge Plan Patient Name: [facility]LEENA VANG [facility] [facility] 1980 Planned Disposition: Home or Self Care Anticipated Discharge Date: 12/13/19 Discharge Date: 12/13/2019 Expected LOS: 2 Initial Reviewer: [email or web address] Initial Review Date: 12/11/2019 Generated: 12/14/19 2:34 am Coverage Notice Reviewer: [email or web address] Matt Tracy Notice Issued Date-Time: 12/12/2019 14:44 Notice Type: Medicare Outpatient Observation Notice Notice Delivered To: Patient Relationship to Patient: Self Business Analyst Name: Lani Vang Delivery Method: HAND - Hand Delivered Geni Days: Prior Verbal Notification: Recipient Understood Notice: Yes Recipient Signature: Yes Med Rec Note Co-signed by Attending: Coverage Notice Comment: COTA delivered/signed by patient. Last DP export: 12/12/19 3:27 p Patient Name: ALEENA VANG Page [phone] at 0135 All edits/amendments must be made on the electronic document DICTATION DATE: 12/14/19134 HOUSEKEEPING AID: KAMRAN 12/14/19134 RPT#: [id number] DC DATE:12/13/19 STATUS: DIS IN [facility] [address] [place] [address] END OF REPORT
== END 2019-12-13 13:25 | disposition home or self-care (01) ==
LOC: D.ER 06:47 → D.M2 09:03 → OBSVTIME 09:03 → D.M2 12-13 13:25
PROVIDERS: Emergency Medicine; Family Medicine; ADMIT Family Medicine; ATTEND Family Medicine
DX: R11.15 Cyclical vomiting syndrome unrelated to migraine (principal); N39.0 Urinary tract infection, site not specified; E87.6 Hypokalemia; E80.6 Other disorders of bilirubin metabolism; E86.0 Dehydration

== ENCOUNTER 2020-02-27 17:31 | Inpatient (IN) | payer MEDICARE, MEDICAID ==
[~2020-02-27] VITALS: Ht 175.3 cm; Wt 56.8 kg
[~2020-02-27 17:31] MED LIST changes: -DEPO SHOT; +DEPO SHOT IM; +EMGALITY; +PHENERGAN25 M1 PO; -SHOT
[2020-02-27 19:16] LABS: BILIRUBIN NEGATIVE (NEGATIVE); KETONE LARGE mg/dL (NEGATIVE); NITRITE NEGATIVE (NEGATIVE); UROBILINOGEN NORMAL mg/dL (< 2)
[2020-02-27 19:17] LABS: BACTERIA MANY HPF (NONE SEEN); WHITE CELLS - URINE 0-5 HPF (0-4)
[2020-02-27 19:18] LABS: HCG URINE NEGATIVE (NEGATIVE)
[2020-02-27 19:21] LABS: BASOPHILS 0.1 % (0-2); EOSINOPHILS 0 % (0-7); HEMATOCRIT 43.6 % (36.0-48.0); HEMOGLOBIN 14.7 g/dL (12-16); IMMATURE GRANULOCYTES 0.5 % (0-5); LYMPHOCYTES 1.6 % (15-50); MCH 29.5 pg (26.0-34.0); MCHC 33.7 g/dL (31.0-37.0); MCV 87.4 fL (80.0-100.0); MEAN PLATELET VOLUME 12.3 fL (7.4-10.4); MONOCYTES 3.1 % (2-11); NEUTROPHILS 94.7 % (40-80); RBC 4.99 10x6/uL (4.00-5.40); RDW 12.8 % (11.5-14.5); WBC 19.4 10x3/uL (4.8-10.8)
[2020-02-27 19:32] LABS: CALC OSMOLALITY 281 mosm/kg (275-300); CALCIUM 9.7 mg/dL (8.5-10.1); CARBON DIOXIDE 21.6 mmol/L (21.0-32.0); CHLORIDE - SERUM 104 mmol/L (98-107); CREATININE - SERUM 1.1 mg/dL (0.6-1.3); POTASSIUM - SERUM 3.9 mmol/L (3.5-5.1); SODIUM 139 mmol/L (136-145); UREA NITROGEN 14 mg/dL (7-18); eGFR NON AFRICAN AMERICAN 59 mL/min (90-120)
[2020-02-27 19:33] LABS: GLUCOSE 151 mg/dL (74-106)
[2020-02-27 19:39] LABS: PLATELET COUNT 275 10x3/uL (130-400)
[2020-02-27 19:40] LABS: ALBUMIN 4.8 g/dL (3.4-5.0); ALKALINE PHOSPHATASE 110 U/L (30-120); ALT (SGPT) 22 U/L (10-68); AMYLASE - SERUM 184 U/L (25-115); BILIRUBIN - TOTAL 1.64 mg/dL (0.2-1.3); PROTEIN - SERUM 8.6 g/dL (6.4-8.2)
[2020-02-27 19:41] LABS: LIPASE 49 U/L (73-393); TROPONIN-I < 0.017 ng/mL (0.000-0.060)
[2020-02-27 22:00] VITALS: BP 126/78
[2020-02-28] VITALS: BP 115/72
[2020-02-28 05:00] VITALS: BP 138/79
[2020-02-28 06:00] LABS: APTT 26.7 SECONDS (22.8-39.4); INR 1.16 (0.85-1.17); PROTIME 14.8 SECONDS (11.6-15.0)
[2020-02-28 06:10] LABS: BASOPHILS 0.1 % (0-2); EOSINOPHILS 0 % (0-7); HEMATOCRIT 38.3 % (36.0-48.0); HEMOGLOBIN 12.8 g/dL (12-16); IMMATURE GRANULOCYTES 0.2 % (0-5); LYMPHOCYTES 6.8 % (15-50); MCH 29.3 pg (26.0-34.0); MCHC 33.4 g/dL (31.0-37.0); MCV 87.6 fL (80.0-100.0); MEAN PLATELET VOLUME 12.1 fL (7.4-10.4); MONOCYTES 9.7 % (2-11); NEUTROPHILS 83.2 % (40-80); PLATELET COUNT 236 10x3/uL (130-400); RBC 4.37 10x6/uL (4.00-5.40); RDW 12.9 % (11.5-14.5)
[2020-02-28 06:20] LABS: WBC 12.4 10x3/uL (4.8-10.8)
[2020-02-28 06:26] LABS: ALBUMIN 4.2 g/dL (3.4-5.0); ALKALINE PHOSPHATASE 93 U/L (30-120); BILIRUBIN - TOTAL 1.71 mg/dL (0.2-1.3); C-REACTIVE PROTEIN < 0.2 mg/dL (0.0-0.9); CALC OSMOLALITY 280 mosm/kg (275-300); CALCIUM 9.2 mg/dL (8.5-10.1); CHLORIDE - SERUM 106 mmol/L (98-107); CKMB 1.2 U/L (0.0-3.6); GLUCOSE 125 mg/dL (74-106); MAGNESIUM - SERUM 2.1 mg/dL (1.8-2.4); PHOSPHOROUS 3.2 mg/dL (2.5-4.9); POTASSIUM - SERUM 3.8 mmol/L (3.5-5.1); PROTEIN - SERUM 7.2 g/dL (6.4-8.2); SODIUM 141 mmol/L (136-145); THYROID STIMULATING HORMONE 1.82 uIU/mL (0.36-3.74); TROPONIN-I < 0.017 ng/mL (0.000-0.060); UREA NITROGEN 11 mg/dL (7-18)
[2020-02-28 06:42] LABS: ALT (SGPT) 16 U/L (10-68); AMYLASE - SERUM 137 U/L (25-115); CREATININE - SERUM 0.8 mg/dL (0.6-1.3); LIPASE 41 U/L (73-393); eGFR NON AFRICAN AMERICAN 85 mL/min (90-120)
[2020-02-28 08:16] VITALS: BMI 18.4
[2020-02-28 09:01] LABS: ERYTHROCYTE SEDIMENTATION RATE 11 mm/hr (0-20)
--- NOTE | 2020-02-28 12:28 | NUR ---
C/O N/V. She has zofran and phenergan for nausea. She is NPO until further notice. Surgery and GI have been consulted. 20g in left wrist with NS @ 125. Patent no redness, edema or tenderness. Continue to montior.
--- NOTE | 2020-02-28 13:45 | NUR ---
RECEIVED PT FROM ED VIA WC. NO ACUTE DISTRESS NOTED. NAUSEATED AND VOMITING. A&OX4. BED IN LOWEST POSITION, LOCKED, SIDE RAILS UP X2. CALL LIGHT WITHIN REACH. NEEDS ANTICIPATED AND MET. WILL CONTINUR TO MONITOR
--- NOTE | 2020-02-28 14:54 | NUR ---
PT WANTED TO TAKE A SHOWER SOON SHE ARRIVED TO THE ROOM. WE OBTAINED HER VS WHICH ARE STABLE BEFORE SHE GOT IN THE SHOWER.
[2020-02-28 16:57] LABS: BILIRUBIN NEGATIVE (NEGATIVE); KETONE MODERATE mg/dL (NEGATIVE); NITRITE NEGATIVE (NEGATIVE); UROBILINOGEN NORMAL mg/dL (< 2)
[2020-02-28 16:58] LABS: WHITE CELLS - URINE 0-5 HPF (0-4)
[2020-02-28 16:59] LABS: BACTERIA MANY HPF (NONE SEEN)
--- NOTE | 2020-02-28 17:57 | NUR ---
PT BACK IN ROOM FROM MRI. NO ACUTE DISTRESS NOTED. VS: TEMP: 99 BP: 113/75 SPO2: 99 RR: 18
[2020-02-28 20:00] VITALS: BP 114/74
[2020-02-29 02:01] VITALS: Ht 175.3 cm; Wt 56.8 kg
[2020-02-29 04:00] VITALS: BP 144/80
--- NOTE | 2020-02-29 06:17 | NUR ---
LEFT HAND SWELLING AROUND IV INSERTION SITE. PT REPORTS MILD DISCOMFORT. DCd WITH CATH INTACT. WARM PACK APPLIED FOR PAIN/SWELLING. 22G IV SITED TO RIGHT FOREARM, 1ST ATTEMPT. PT TOLERATED WELL. PT REPORTS IV COMPAZINE IS RELIEVING NAUSEA. PAIN IS SETTLING SOME, 11/07. ICE CHIPS PER REQUEST. DENIES FURTHER NEEDS AT TIMES TIME, CTM.
[2020-02-29 06:25] LABS: BASOPHILS 0.1 % (0-2); EOSINOPHILS 0 % (0-7); HEMATOCRIT 36.2 % (36.0-48.0); IMMATURE GRANULOCYTES 0.2 % (0-5); LYMPHOCYTES 7.7 % (15-50); MCH 28.8 pg (26.0-34.0); MCHC 33.1 g/dL (31.0-37.0); MEAN PLATELET VOLUME 11.8 fL (7.4-10.4); MONOCYTES 6.8 % (2-11); NEUTROPHILS 85.2 % (40-80); PLATELET COUNT 202 10x3/uL (130-400); RBC 4.16 10x6/uL (4.00-5.40); RDW 12.8 % (11.5-14.5); WBC 11.3 10x3/uL (4.8-10.8)
[2020-02-29 06:45] LABS: CALCIUM 8.5 mg/dL (8.5-10.1); CARBON DIOXIDE 21.2 mmol/L (21.0-32.0); CHLORIDE - SERUM 103 mmol/L (98-107); CREATININE - SERUM 0.8 mg/dL (0.6-1.3); GLUCOSE 129 mg/dL (74-106); MAGNESIUM - SERUM 1.9 mg/dL (1.8-2.4); PHOSPHOROUS 2.5 mg/dL (2.5-4.9); SODIUM 137 mmol/L (136-145); eGFR NON AFRICAN AMERICAN 85 mL/min (90-120)
[2020-02-29 06:47] LABS: CALC OSMOLALITY 277 mosm/kg (275-300); POTASSIUM - SERUM 3.2 mmol/L (3.5-5.1); UREA NITROGEN 17 mg/dL (7-18)
--- NOTE | 2020-02-29 07:15 | NUR ---
A&O RESTING IN BED WITH EYES OPEN. NO C/O PAIN. NO S/S OF ACUTE DISTRESS NOTED. NPO EXCEPT ICE CHIPS. IV TO RIGHT FOREARM, 1/2 NS INFUSING @ 50ML/HR. SITE PATENT WITHOUT REDNESS OR SWELLING. LEFT HAND SWELLING D/T IV INFILTRATION. POTASSIUM 3.2 THIS AM, WILL FOLLOW ELECTROLYTE PROTOCOL. DENIES ANY NEEDS AT THIS TIME. CALL LIGHT IN REACH. WILL CONTINUE TO MONITOR.
[2020-02-29 08:07] VITALS: BP 122/69
[2020-02-29 12:04] VITALS: BP 138/83
[2020-02-29 17:50] VITALS: BP 118/81
--- NOTE | 2020-02-29 18:35 | NUR ---
A&O RESTING IN BED WITH EYES OPEN. NO C/O PAIN. NO S/S OF ACUTE DISTRESS NOTED. CALL LIGHT IN REACH. WILL CONTINUE TO MONITOR.
[2020-02-29 20:00] VITALS: BP 100/63
--- NOTE | 2020-02-29 20:16 | NUR ---
I have reviewed this patient and I concur with the Shift Assessment completed by the Licensed Practical Nurse today this shift.
[2020-03-01 04:00] VITALS: BP 140/93
[2020-03-01 06:39] LABS: BASOPHILS 0.1 % (0-2); EOSINOPHILS 0.1 % (0-7); HEMATOCRIT 36.9 % (36.0-48.0); HEMOGLOBIN 12.5 g/dL (12-16); IMMATURE GRANULOCYTES 0.2 % (0-5); LYMPHOCYTES 10.2 % (15-50); MCH 29.6 pg (26.0-34.0); MCHC 33.9 g/dL (31.0-37.0); MCV 87.4 fL (80.0-100.0); MEAN PLATELET VOLUME 11.5 fL (7.4-10.4); MONOCYTES 7.6 % (2-11); NEUTROPHILS 81.8 % (40-80); PLATELET COUNT 201 10x3/uL (130-400); RBC 4.22 10x6/uL (4.00-5.40); RDW 12.6 % (11.5-14.5); WBC 9.2 10x3/uL (4.8-10.8)
--- NOTE | 2020-03-01 07:09 | NUR ---
I have reviewed this patient and I concur with the Shift Assessment completed by the Licensed Practical Nurse today this shift.
[2020-03-01 07:42] LABS: CALC OSMOLALITY 271 mosm/kg (275-300); CALCIUM 8.7 mg/dL (8.5-10.1); CARBON DIOXIDE 22.7 mmol/L (21.0-32.0); CHLORIDE - SERUM 100 mmol/L (98-107); CREATININE - SERUM 0.7 mg/dL (0.6-1.3); GLUCOSE 116 mg/dL (74-106); MAGNESIUM - SERUM 1.9 mg/dL (1.8-2.4); PHOSPHOROUS 2.6 mg/dL (2.5-4.9); SODIUM 136 mmol/L (136-145); UREA NITROGEN 11 mg/dL (7-18); eGFR NON AFRICAN AMERICAN > 90 mL/min (90-120)
[2020-03-01 07:44] LABS: POTASSIUM - SERUM 2.9 mmol/L (3.5-5.1)
[2020-03-01 10:10] VITALS: BP 132/86
[2020-03-01] MEDS ORDERED: FLORAJEN3 CAPS460 MG PO (11:27)
[2020-03-01] MEDS ORDERED: ZOFRAN ODT4 MG/UDTAB PO (11:29)
[2020-03-01] MEDS ORDERED: REGLAN5 MG PO (11:29)
--- NOTE | 2020-03-01 12:00 | NUR ---
PATIENT DENIES NEEDS AT THIS TIME. FREE FROM SIGNS OF DISTRESS. WILL CONTINUE TO MONITOR.
--- NOTE | 2020-03-01 12:08 | MORECARE ---
CASE MANAGEMENT DISCHARGE SUMMARY PATIENT: ALEENA LOPEZ UNIT: [id number] ADM DATE: 02/27/20 AGE: 39 : 82 SEX: F ROOM/BED: D.2240 AUTHOR: STEVEN,DOC PHYSICIAN: REFERRING PHYSICIAN: SAKINA HILL MD DATE OF SERVICE: 03/01/20 Discharge Plan Patient Name: ALEENA LOPEZ Facility: [facility]:[place] : 1980 Planned Disposition: Anticipated Discharge Date: Discharge Date: Expected LOS: Initial Reviewer: [email or web address] Initial Review Date: 02/28/2020 Generated: 03/01/20 1:07 pm Comments DCP- Discharge Planning Updated by [email or web address]: Monika Jalloh on 03/01/20 11:[address] Patient Name: ALEENA LOPEZ Admission Status: ER Accout number: [id number] Admission Date: 02-27-2020 : 1980 Admission Diagnosis:NAUSEA WITH VOMITING, UNSPECIFIED Attending: SAKINA HILL Current LOS: 3 Anticipated DC Date: Planned Disposition: Primary Insurance: WE[employer] MEDICARE ADV Discharge Planning Comments: CM met with patient at bedside after explaining CM role and obtaining verbal consent. CM discussed availability / needs of home health, REHAB and medical equipment. DENIES ANY DC NEEDS. IMM EXPLAINED, PATIENT VERBALIZED UNDERSTANDING AND SIGNED FORM, GIVEN TO PATIENT AND PLACED COPY ON THE CHART. CM TO FOLLOW AND ASSIST NEEDED. ANTICIPATES DC TO HOME TODAY. Harness Builder: Monika Jalloh DCPIA - Discharge Planning Initial Assessment Updated by [email or web address]: Monika Jalloh on 03/01/20 12:01 pm * Is the patient Alert and Oriented? Yes * PCP WAS YOHANA * Pharmacy [facility] * Preadmission Environment Home with Family * ADLs Independent * Equipment None * Community resources currently utilized None * Additional services required to return to the preadmission environment? No * Can the patient safely return to the preadmission environment? Yes * Has this patient been hospitalized within the prior 30 days at any hospital? No Coverage Notice Reviewer: [id number] - Monika Jalloh Notice Issued Date-Time: 03/01/2020 12:03 Notice Type: IM Discharge Notice Notice Delivered To: Patient Relationship to Patient: Plastics Heat Welder Name: Delivery Method: HAND - Hand Delivered Geni Days: Prior Verbal Notification: Recipient Understood Notice: Yes Recipient Signature: Yes Med Rec Note Co-signed by Attending: Coverage Notice Comment: Patient Name: ALEENA LOPEZ Page [phone] at 1208 All edits/amendments must be made on the electronic document DICTATION DATE: 03/01/201206 ASSISTANT CHILD CARE TEACHER: KAMRAN 03/01/201206 RPT#: [id number] DC DATE: STATUS: ADM IN [facility] [address] [place] [address] END OF REPORT
[2020-03-01 14:18] VITALS: BP 122/85
[2020-03-01 16:49] VITALS: BP 113/75
--- NOTE | 2020-03-01 17:14 | NUR ---
DISCHARGED PATIENT HOME WITH FAMILY VIA WHEELCHAIR. DISCONTINUED IV, CATHETER TIP INTACT. WENT OVER DISCHARGE INSTRUCTIONS WITH PATIENT, VERBALIZED UNDERSTANDING. DENIES ANYTHING FURTHER.
[2020-03-02] MEDS ORDERED: ZOFRAN ODT4 MG/UDTAB PO (17:42)
[2020-03-02] MEDS ORDERED: KEFLEX500 MG PO (17:42)
[2020-03-02] MEDS ORDERED: MACROBID100 MG PO (17:42)
--- NOTE | 2020-03-04 09:27 | MORECARE ---
CASE MANAGEMENT DISCHARGE SUMMARY PATIENT: ALEENA LOPEZ UNIT: [id number] ADM DATE: 02/27/20 AGE: 39 : 82 SEX: F ROOM/BED: D.2240 AUTHOR: STEVENDOC PHYSICIAN: REFERRING PHYSICIAN: SAKINA HILL MD DATE OF SERVICE: 03/04/20 Discharge Plan Patient Name: ALEENA LOPEZ Facility: [facility]:[place] : 1980 Planned Disposition: Anticipated Discharge Date: Discharge Date: 03/01/2020 Expected LOS: Initial Reviewer: [id number] Initial Review Date: 02/28/2020 Generated: 03/04/20 10:26 am Comments DCP- Discharge Planning Updated by [id number]: Monika Jalloh on 03/01/20 11:[address] Patient Name: ALEENA LOPEZ Admission Status: ER Accout number: [id number] Admission Date: 02-27-2020 : 1980 Admission Diagnosis:NAUSEA WITH VOMITING, UNSPECIFIED Attending: SAKINA HILL Current LOS: 3 Anticipated DC Date: Planned Disposition: Primary Insurance: [employer] ADV Discharge Planning Comments: CM met with patient at bedside after explaining CM role and obtaining verbal consent. CM discussed availability / needs of home health, REHAB and medical equipment. DENIES ANY DC NEEDS. IMM EXPLAINED, PATIENT VERBALIZED UNDERSTANDING AND SIGNED FORM, GIVEN TO PATIENT AND PLACED COPY ON THE CHART. CM TO FOLLOW AND ASSIST NEEDED. ANTICIPATES DC TO HOME TODAY. Dressing Machine Operator: Monika Jalloh DCPIA - Discharge Planning Initial Assessment Updated by [email or web address]: Monika Jalloh on 03/01/20 12:01 pm * Is the patient Alert and Oriented? Yes * PCP WAS [facility] * Pharmacy [facility] * Preadmission Environment Home with Family * ADLs Independent * Equipment None * Community resources currently utilized None * Additional services required to return to the preadmission environment? No * Can the patient safely return to the preadmission environment? Yes * Has this patient been hospitalized within the prior 30 days at any hospital? 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
== END 2020-03-01 17:19 | disposition home or self-care (01) | DRG 394 ==
LOC: D.ER 17:31 → D.MS 23:15 → D.EDHOLD 23:15 → D.MS 02-28 12:41
PROVIDERS: Emergency Medicine; Family Medicine; ADMIT Family Medicine; ATTEND Family Medicine
DX: R11.15 Cyclical vomiting syndrome unrelated to migraine (principal); N39.0 Urinary tract infection, site not specified; E80.6 Other disorders of bilirubin metabolism; F12.20 Cannabis dependence, uncomplicated; M79.7 Fibromyalgia; R10.9 Unspecified abdominal pain; R50.9 Fever, unspecified

== ENCOUNTER 2020-03-02 15:53 | Emergency (ER) | payer MEDICARE, MEDICAID ==
[~2020-03-02 15:53] MED LIST changes: +FLORAJEN3 CAPS460 MG PO; +REGLAN5 MG PO
[2020-03-02 16:09] VITALS: Ht 175.3 cm
[2020-03-02 16:54] LABS: BASOPHILS 0.1 % (0-2); EOSINOPHILS 0 % (0-7); IMMATURE GRANULOCYTES 0.4 % (0-5); LYMPHOCYTES 9.5 % (15-50); MCHC 33.9 g/dL (31.0-37.0); MCV 85.8 fL (80.0-100.0); MEAN PLATELET VOLUME 11.5 fL (7.4-10.4); MONOCYTES 1.7 % (2-11); NEUTROPHILS 88.3 % (40-80); RDW 12.5 % (11.5-14.5)
[2020-03-02 16:56] LABS: HEMATOCRIT 44.6 % (36.0-48.0); HEMOGLOBIN 15.1 g/dL (12-16); PLATELET COUNT 261 10x3/uL (130-400); WBC 13.1 10x3/uL (4.8-10.8)
[2020-03-02 17:04] LABS: CALC OSMOLALITY 273 mosm/kg (275-300); CALCIUM 9.4 mg/dL (8.5-10.1); CARBON DIOXIDE 21.9 mmol/L (21.0-32.0); CHLORIDE - SERUM 99 mmol/L (98-107); CREATININE - SERUM 0.8 mg/dL (0.6-1.3); GLUCOSE 142 mg/dL (74-106); POTASSIUM - SERUM 3.2 mmol/L (3.5-5.1); SODIUM 135 mmol/L (136-145); eGFR NON AFRICAN AMERICAN 85 mL/min (90-120)
[2020-03-02 17:05] LABS: UREA NITROGEN 17 mg/dL (7-18)
[2020-03-02 17:17] LABS: ALKALINE PHOSPHATASE 97 U/L (30-120); ALT (SGPT) 14 U/L (10-68); AMYLASE - SERUM 284 U/L (25-115); BILIRUBIN - TOTAL 1.34 mg/dL (0.2-1.3); LIPASE 77 U/L (73-393); PROTEIN - SERUM 8.6 g/dL (6.4-8.2); TROPONIN-I 0.031 ng/mL (0.000-0.060)
[2020-03-02] MEDS ORDERED: KEFLEX500 MG PO (17:42)
[2020-03-02] MEDS ORDERED: MACROBID100 MG PO (17:42)
[2020-03-02] MEDS ORDERED: ZOFRAN ODT4 MG/UDTAB PO (17:42)
[2020-03-02 19:17] VITALS: BP 133/77
[2020-03-03] MEDS ORDERED: ZOFRAN ODT4 MG/UDTAB PO (13:26)
[2020-03-03] MEDS ORDERED: LEVAQUIN750 MG PO (13:26)
== END 2020-03-02 19:47 | disposition home or self-care (01) ==
LOC: D.ER 15:53
PROVIDERS: Family Medicine
DX: N12 Tubulo-interstitial nephritis, not specified as acute or chronic (principal); K31.84 Gastroparesis; R11.2 Nausea with vomiting, unspecified; Z53.29 Procedure and treatment not carried out because of patient's decision for other reasons

== ENCOUNTER 2020-03-03 09:23 | Inpatient (IN) | payer MEDICARE, MEDICAID ==
[~2020-03-03] VITALS: Ht 175.3 cm; Wt 56.8 kg
[~2020-03-03 09:23] MED LIST changes: +KEFLEX500 MG PO; +MACROBID100 MG PO
[2020-03-03 09:34] VITALS: Ht 175.3 cm; Wt 56.8 kg
[2020-03-03 10:25] LABS: BASOPHILS 0.2 % (0-2); EOSINOPHILS 0 % (0-7); HEMATOCRIT 44.3 % (36.0-48.0); HEMOGLOBIN 15.1 g/dL (12-16); IMMATURE GRANULOCYTES 0.4 % (0-5); MCH 29.6 pg (26.0-34.0); MCHC 34.1 g/dL (31.0-37.0); MCV 86.9 fL (80.0-100.0); MEAN PLATELET VOLUME 11.4 fL (7.4-10.4); MONOCYTES 5.4 % (2-11); PLATELET COUNT 247 10x3/uL (130-400); RDW 12.6 % (11.5-14.5); WBC 13.3 10x3/uL (4.8-10.8)
[2020-03-03 10:37] LABS: ANION GAP 13.7 mmol/L (8-16); CALCIUM 9.1 mg/dL (8.5-10.1); CARBON DIOXIDE 24.3 mmol/L (21.0-32.0); CREATININE - SERUM 0.9 mg/dL (0.6-1.3)
[2020-03-03 10:42] LABS: BILIRUBIN NEGATIVE (NEGATIVE); KETONE LARGE mg/dL (NEGATIVE); NITRITE NEGATIVE (NEGATIVE); UROBILINOGEN NORMAL mg/dL (< 2)
[2020-03-03 10:44] LABS: WHITE CELLS - URINE 0-5 HPF (0-4)
[2020-03-03 10:46] LABS: BACTERIA MODERATE HPF (NONE SEEN)
[2020-03-03 10:53] LABS: ALBUMIN 4.9 g/dL (3.4-5.0); BILIRUBIN - TOTAL 1.48 mg/dL (0.2-1.3); PROTEIN - SERUM 8.3 g/dL (6.4-8.2)
[2020-03-03 12:00] VITALS: BP 133/85
[2020-03-03] MEDS ORDERED: LEVAQUIN750 MG PO (13:26)
[2020-03-03] MEDS ORDERED: ZOFRAN ODT4 MG/UDTAB PO (13:26)
--- NOTE | 2020-03-03 13:36 | NUR ---
ALBA MCDUFFIE HHELD DUE TO PATIENT TO BE DISCHARGED, K TABS NOT GIVEN DUE TO PATIENT UNABLE TO TOLERTE. PHYSICIAN NOTIFIED. WILL INFUSE 2 KCL RIDERS PRIOR TO DISCHARGE
[2020-03-03 13:37] VITALS: BP 131/76
--- NOTE | 2020-03-03 15:24 | NUR ---
2nd potassium rider started and after partial dose, IV infiltrated. Patient refuses to have another IV started. Requesting discharge.
[2020-03-03 15:53] VITALS: BP 126/78
== END 2020-03-03 17:17 | disposition home or self-care (01) | DRG 392 ==
LOC: D.ER 09:23 → D.MS 12:48 → D.EDHOLD 16:32
PROVIDERS: Family Medicine; ADMIT Family Medicine Adult Medicine; ATTEND Family Medicine Adult Medicine
DX: K31.84 Gastroparesis (principal); N39.0 Urinary tract infection, site not specified; E86.0 Dehydration; R11.2 Nausea with vomiting, unspecified; F12.90 Cannabis use, unspecified, uncomplicated; M79.7 Fibromyalgia; R11.15 Cyclical vomiting syndrome unrelated to migraine

== ENCOUNTER 2020-08-15 16:00 | Emergency (ER) | payer MEDICARE, MEDICAID ==
[~2020-08-15] VITALS: Ht 175.3 cm; Wt 54.5 kg
[~2020-08-15 16:00] MED LIST changes: +LEVAQUIN750 MG PO; +PHENERGAN50 MG RC; +ULTRAM50 MG PO
[2020-08-15 16:04] VITALS: Ht 175.3 cm; Wt 54.5 kg
[2020-08-15 17:32] LABS: BASOPHILS 0.1 % (0-2); EOSINOPHILS 0 % (0-7); HEMATOCRIT 39.5 % (36.0-48.0); HEMOGLOBIN 13.2 g/dL (12-16); IMMATURE GRANULOCYTES 0.1 % (0-5); LYMPHOCYTE ABS# 0.37 10x3/uL (1.18-3.74); LYMPHOCYTES 2.5 % (15-50); MCH 29.5 pg (26.0-34.0); MCHC 33.4 g/dL (31.0-37.0); MCV 88.2 fL (80.0-100.0); MEAN PLATELET VOLUME 11.7 fL (7.4-10.4); MONOCYTES 2.2 % (2-11); NEUTROPHIL ABS# 13.94 10x3/uL (1.56-6.13); NEUTROPHILS 95.1 % (40-80); PLATELET COUNT 229 10x3/uL (130-400); RBC 4.48 10x6/uL (4.00-5.40); WBC 14.7 10x3/uL (4.8-10.8)
[2020-08-15 17:36] LABS: CALC OSMOLALITY 282 mosm/kg (275-300); CALCIUM 8.8 mg/dL (8.5-10.1); CARBON DIOXIDE 22.5 mmol/L (21.0-32.0); CHLORIDE - SERUM 106 mmol/L (98-107); CREATININE - SERUM 0.9 mg/dL (0.6-1.3); GLUCOSE 160 mg/dL (74-106); POTASSIUM - SERUM 4.3 mmol/L (3.5-5.1); SODIUM 141 mmol/L (136-145); UREA NITROGEN 10 mg/dL (7-18); eGFR NON AFRICAN AMERICAN 74 mL/min (90-120)
[2020-08-15 17:37] LABS: BILIRUBIN NEGATIVE (NEGATIVE); KETONE NEGATIVE (NEGATIVE); NITRITE NEGATIVE (NEGATIVE); UROBILINOGEN NORMAL mg/dL (< 2)
[2020-08-15 17:43] LABS: BACTERIA MODERATE HPF (NONE SEEN)
[2020-08-15 17:44] LABS: ALBUMIN 4.1 g/dL (3.4-5.0); ALKALINE PHOSPHATASE 105 U/L (30-120); ALT (SGPT) 25 U/L (10-68); AMYLASE - SERUM 102 U/L (25-115); BILIRUBIN - TOTAL 1.21 mg/dL (0.2-1.3); LIPASE 67 U/L (73-393); PROTEIN - SERUM 7.5 g/dL (6.4-8.2)
[2020-08-15 17:46] LABS: TROPONIN-I < 0.017 ng/mL (0.000-0.060)
[2020-08-15 20:16] VITALS: BP 117/79
[2020-08-16] MEDS ORDERED: REGLAN5 MG PO (13:51)
== END 2020-08-15 20:10 | disposition home or self-care (01) ==
LOC: D.ER 16:00
PROVIDERS: Emergency Medicine
DX: R11.2 Nausea with vomiting, unspecified (principal)

== ENCOUNTER 2020-08-16 11:12 | Emergency (ER) | payer MEDICARE, MEDICAID ==
[~2020-08-16] VITALS: Ht 175.3 cm; Wt 63.6 kg
[2020-08-16 11:15] VITALS: Ht 175.3 cm; Wt 63.6 kg
[2020-08-16 12:12] LABS: BASOPHILS 0 % (0-2); EOSINOPHILS 0 % (0-7); HEMATOCRIT 36.9 % (36.0-48.0); HEMOGLOBIN 12.5 g/dL (12-16); IMMATURE GRANULOCYTES 0.3 % (0-5); LYMPHOCYTE ABS# 0.44 10x3/uL (1.18-3.74); LYMPHOCYTES 4.5 % (15-50); MCH 29.7 pg (26.0-34.0); MCHC 33.9 g/dL (31.0-37.0); MCV 87.6 fL (80.0-100.0); MEAN PLATELET VOLUME 11.9 fL (7.4-10.4); MONOCYTES 4.8 % (2-11); NEUTROPHIL ABS# 8.75 10x3/uL (1.56-6.13); NEUTROPHILS 90.4 % (40-80); PLATELET COUNT 207 10x3/uL (130-400); RBC 4.21 10x6/uL (4.00-5.40); RDW 13.2 % (11.5-14.5); WBC 9.7 10x3/uL (4.8-10.8)
[2020-08-16 12:27] LABS: CALCIUM 9.3 mg/dL (8.5-10.1); CARBON DIOXIDE 23.1 mmol/L (21.0-32.0); CHLORIDE - SERUM 105 mmol/L (98-107); CREATININE - SERUM 0.8 mg/dL (0.6-1.3); GLUCOSE 134 mg/dL (74-106); SODIUM 140 mmol/L (136-145); eGFR NON AFRICAN AMERICAN 85 mL/min (90-120)
[2020-08-16 12:28] LABS: CALC OSMOLALITY 280 mosm/kg (275-300); POTASSIUM - SERUM 3.2 mmol/L (3.5-5.1); UREA NITROGEN 13 mg/dL (7-18)
[2020-08-16 12:35] LABS: ALBUMIN 4.3 g/dL (3.4-5.0); ALKALINE PHOSPHATASE 96 U/L (30-120); ALT (SGPT) 21 U/L (10-68); AMYLASE - SERUM 93 U/L (25-115); LIPASE 66 U/L (73-393); PROTEIN - SERUM 7.3 g/dL (6.4-8.2)
[2020-08-16 13:25] LABS: HCG URINE NEGATIVE (NEGATIVE)
[2020-08-16 13:34] LABS: UDS - AMPHET NEGATIVE QUAL (NEGATIVE); UDS - BARB NEGATIVE QUAL (NEGATIVE); UDS - BENZO NEGATIVE QUAL (NEGATIVE); UDS - COCAINE NEGATIVE QUAL (NEGATIVE); UDS - OPIATE NEGATIVE QUAL (NEGATIVE); UDS - PCP NEGATIVE QUAL (NEGATIVE); UDS - THC POSITIVE QUAL (NEGATIVE)
[2020-08-16] MEDS ORDERED: REGLAN5 MG PO (13:51)
[2020-08-16 13:54] LABS: BILIRUBIN NEGATIVE (NEGATIVE); KETONE MODERATE mg/dL (NEGATIVE); NITRITE NEGATIVE (NEGATIVE); UROBILINOGEN NORMAL mg/dL (< 2)
[2020-08-16 13:58] LABS: BACTERIA MODERATE HPF (NONE SEEN); WHITE CELLS - URINE 0-5 HPF (0-4)
[2020-08-16 15:24] VITALS: BP 113/72
== END 2020-08-16 15:25 | disposition home or self-care (01) ==
LOC: D.ER 11:12
PROVIDERS: Emergency Medicine
DX: K31.84 Gastroparesis (principal); R11.2 Nausea with vomiting, unspecified; E87.6 Hypokalemia

== ENCOUNTER 2020-11-03 23:01 | Inpatient (IN) | payer MEDICARE, MEDICAID ==
[~2020-11-03] VITALS: Ht 175.3 cm; Wt 56.8 kg
[2020-11-03 23:41] LABS: HCG URINE NEGATIVE (NEGATIVE)
[2020-11-03 23:42] LABS: BILIRUBIN NEGATIVE (NEGATIVE); KETONE LARGE mg/dL (NEGATIVE); NITRITE NEGATIVE (NEGATIVE); UROBILINOGEN NORMAL mg/dL (< 2)
[2020-11-03 23:43] LABS: SQUAMOUS EPITHELIAL 0-5 HPF (0-4); WHITE CELLS - URINE 0-5 HPF (0-4)
[2020-11-03 23:44] LABS: BACTERIA MODERATE HPF (NONE SEEN)
[2020-11-03 23:50] LABS: BASOPHILS 0.1 % (0-2); EOSINOPHILS 0 % (0-7); HEMATOCRIT 43.1 % (36.0-48.0); HEMOGLOBIN 14.2 g/dL (12-16); LYMPHOCYTES 2.3 % (15-50); MCH 28.4 pg (26.0-34.0); MCHC 32.8 g/dL (31.0-37.0); MCV 86.6 fL (80.0-100.0); MEAN PLATELET VOLUME 10.4 fL (7.4-10.4); MONOCYTES 3.1 % (2-11); NEUTROPHILS 94.5 % (40-80); PLATELET COUNT 254 10x3/uL (130-400); RBC 4.98 10x6/uL (4.00-5.40); RDW 13.1 % (11.5-14.5)
[2020-11-03 23:57] LABS: CALC OSMOLALITY 291 mosm/kg (275-300); CALCIUM 9.5 mg/dL (8.5-10.1); CARBON DIOXIDE 20.3 mmol/L (21.0-32.0); CHLORIDE - SERUM 104 mmol/L (98-107); CREATININE - SERUM 1.1 mg/dL (0.6-1.3); GLUCOSE 163 mg/dL (74-106); POTASSIUM - SERUM 3.3 mmol/L (3.5-5.1); SODIUM 143 mmol/L (136-145); UREA NITROGEN 20 mg/dL (7-18); eGFR NON AFRICAN AMERICAN 59 mL/min (90-120)
[2020-11-04 00:11] LABS: ALBUMIN 4.9 g/dL (3.4-5.0); ALKALINE PHOSPHATASE 89 U/L (30-120); ALT (SGPT) 19 U/L (10-68); BILIRUBIN - TOTAL 1.96 mg/dL (0.2-1.3); PROTEIN - SERUM 8.5 g/dL (6.4-8.2)
[2020-11-04 00:40] LABS: AMYLASE - SERUM 738 U/L (25-115); LIPASE 40 U/L (73-393); TROPONIN-I < 0.017 ng/mL (0.000-0.060)
[2020-11-04 00:55] VITALS: BP 118/76
[2020-11-04 02:50] VITALS: BP 149/82; Ht 175.3 cm; Wt 56.8 kg
--- NOTE | 2020-11-04 03:05 | NUR ---
ADMISSION ASSESSMENT, HISTORY AND HOME MED COMPLETED. VSS. ALERT AND ORIENTED TO PERSON, PLACE AND TIME. CHOU. IV TO R WRIST WITH ZOFRAN DRIP INFUSING AT 4.6CC/HR. IV PATENT. LUNGS CTA. HYPOACTIVE BS NOTED. KCL 40 MEQ POWDER IN 210CC OF WATER GIVEN FOR K+ OF 3.3. PT VOMITED GREEN COLORED EMESIS 5 MINUTES AFTER DRINKING SOME OF THE K+. SR UP X1, CALL LIGHT WITHIN REACH.
[2020-11-04] MEDS ORDERED: DEPO SHOT (03:08)
--- NOTE | 2020-11-04 04:15 | NUR ---
PT RESTING WITH EYES CLOSED. RESP EVEN AND REGULAR. CALL LIGHT WITHIN REACH.
--- NOTE | 2020-11-04 06:07 | NUR ---
PT RESTING WITH EYES CLOSED. RESP EVEN AND REGULAR. WILL CONTINUE TO MONITOR.
--- NOTE | 2020-11-04 07:11 | NUR ---
RECEIVE SHIFT REPORT. RESTING IN BED. AROUSES TO VOICE. DENIES ANY NEEDS AT THIS TIME. STATES SHE IS FEELING A LITTLE BETTER AT THIS TIME. NO N/V PRESENT AT THE TIME. NPO. WILL CONTINUE POC AND SAFETY PRECAUTIONS. CALL LIGHT IN REACH.
[2020-11-04 09:00] VITALS: BP 115/70
[2020-11-04 10:44] LABS: BASOPHILS 0.1 % (0-2); EOSINOPHILS 0 % (0-7); HEMATOCRIT 35.5 % (36.0-48.0); HEMOGLOBIN 11.6 g/dL (12-16); LYMPHOCYTES 8.4 % (15-50); MCH 28.4 pg (26.0-34.0); MCHC 32.7 g/dL (31.0-37.0); MEAN PLATELET VOLUME 10.6 fL (7.4-10.4); NEUTROPHILS 83.5 % (40-80); PLATELET COUNT 206 10x3/uL (130-400); RBC 4.08 10x6/uL (4.00-5.40)
[2020-11-04 10:48] LABS: WBC 12.2 10x3/uL (4.8-10.8)
[2020-11-04 10:57] LABS: ALBUMIN 3.9 g/dL (3.4-5.0); ALKALINE PHOSPHATASE 72 U/L (30-120); ALT (SGPT) 19 U/L (10-68); BILIRUBIN - TOTAL 1.87 mg/dL (0.2-1.3); CALC OSMOLALITY 287 mosm/kg (275-300); CALCIUM 8.4 mg/dL (8.5-10.1); CARBON DIOXIDE 23.7 mmol/L (21.0-32.0); CHLORIDE - SERUM 109 mmol/L (98-107); CREATININE - SERUM 0.7 mg/dL (0.6-1.3); GLUCOSE 117 mg/dL (74-106); POTASSIUM - SERUM 3.4 mmol/L (3.5-5.1); PROTEIN - SERUM 6.9 g/dL (6.4-8.2); SODIUM 144 mmol/L (136-145); UREA NITROGEN 13 mg/dL (7-18); eGFR NON AFRICAN AMERICAN > 90 mL/min (90-120)
[2020-11-04 12:50] VITALS: BP 103/68; BP 120/79
--- NOTE | 2020-11-04 16:01 | MORECARE ---
CASE MANAGEMENT DISCHARGE SUMMARY PATIENT: ALEENA LOPEZ UNIT: [id number] ADM DATE: 11/04/20 AGE: 40 : [birth year] SEX: F ROOM/BED: D.2130 AUTHOR: STEVENDOC PHYSICIAN: REFERRING PHYSICIAN: NICK MELARA MD DATE OF SERVICE: 11/04/20 Case Management Discharge Planning Summary DCP REVIEW SUMMARY ANTICIPATED D/C DATE: 11/04/2020 EXPECTED LOS : 1 CASE STATUS: DCP Initiated INITIAL REVIEW: 11/04/2020 INITIAL REVIEWER: Adrianne Desouza FINAL DISCHARGE DISPOSITION: : FINAL REVIEWER: FINAL REVIEW DATE: DCP Focus Questions & Answers QUESTION: ANSWER : PATIENT: ALEENA LOPEZ ENCOUNTER: [id number] MEDICAL RECORD#: [id number] ADMISSION DATE: 11/04/2020 DISCHARGE DATE: ATTENDING MD: : AGE: 40 MARITAL STATUS: M DC PLAN ID: [id number] FACILITY: [facility] PRINTED ON: 11/04/20 16:00 CT All edits/amendments must be made on the electronic document DICTATION DATE: 11/04/20 1600 TOY DEPARTMENT MANAGER: DM 11/04/20 1600 RPT#: [id number] DC DATE: STATUS: ADM IN [facility] [address] [place] [address] END OF REPORT
--- NOTE | 2020-11-04 16:15 | MORECARE ---
CASE MANAGEMENT DISCHARGE SUMMARY PATIENT: ALEENA VANG UNIT: [id number] ADM DATE: 11/04/20 AGE: 40 : 81 SEX: F ROOM/BED: D.2130 AUTHOR: STEVEN,DOC PHYSICIAN: REFERRING PHYSICIAN: NICK MELARA MD DATE OF SERVICE: 11/04/20 Case Management Discharge Planning Summary COMMENTS ENTERED DATE: 11/04/20 16:03 CT COMMENT TYPE: Discharge Planning REVIEWER: Adrianne Desouza CM met with patient to complete discharge planning assessment and offer availability of needed services. Patient states that she lives independently at home with her spouse prior to admission. Pt verified that home environment is safe and has electricity and running water. Patient denies need for transportation and state that they have funds for services and medications if needed. PCP is Dr Granados and patient uses [facility] for her pharmacy. CM offered and discussed home health, rehab services, and need for any medical equipment. Patient did not express need for offered services at this time. Transportation home will be provided by her spouse Herminio Vang ([phone]) when discharged. Patient voices not needs at this time. DCP REVIEW SUMMARY ANTICIPATED D/C DATE: 11/04/2020 EXPECTED LOS : 1 CASE STATUS: DCP Initiated INITIAL REVIEW: 11/04/2020 INITIAL REVIEWER: Adrianne Desouza FINAL DISCHARGE DISPOSITION: : FINAL REVIEWER: FINAL REVIEW DATE: [facility] Focus Questions & Answers DCP Screen QUESTION: ANSWER High Risk Factors: : None Walking limitation: Patient stated self rated walking limitation present? : No Age: : 19 - 45 Prior living environment: : Lives with others Disability ranking: : Grade 1: No significant disability DCP Evaluation QUESTION: ANSWER Patient and/or caregiver agree upon recommended discharge plan? : Yes Family / Caregiver's ability to cope with chronic illness: : a. Adequate (ability to meet patient's medical needs, ensures patient attends medical appts.) Patient's current cognitive status: : *Oriented to person, place, situation, time and present Patient's ability to cope with chronic illness : d. No chronic illness Does the patient have the ability to pay for or attain post discharge needs / services? : Yes Functional screen assessment: : Basic needs can adequately be met by self Family / Caregiver's ability to cope with chronic illness: : a. Adequate (ability to meet patient's medical needs, ensures patient attends medical appts.) Physical Status: : Independent with ADL's Equipment needed for post hospitalization: : None Is there a likelihood that the patient will require additional services to return to the preadmission environment? : Yes Living Arrangements: : Home with Spouse/Significant Other Results of this evaluation have been discussed with: : Patient Patient with capacity for self-care or can be cared for in same environment as prior to hospitalization? 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 : N/A Pharmacy name(s): : [facility] Planned post hospital services covered by insurance plan? : N/A Does Patient have transportation to get home and to follow-up medical appointments when discharged from the hospital? : Yes Would patient like to participate in any Care Coordination programs (if applicable): : Not applicable Does the patient have electricity at home? : Yes Does the patient have running water in their house? : Yes Equipment in use: : None Mental health screen: : No mental health history Psychosocial status: : Independent adult (18-64) Abuse/Neglect: : None Resources / Services in place: : None DCP Re-evaluation QUESTION: ANSWER Would patient like to participate in any Care Coordination programs (if applicable): : Not applicable PATIENT: ALEENA VANG ENCOUNTER: [id number] MEDICAL RECORD#: [id number] ADMISSION DATE: 11/04/2020 DISCHARGE DATE: ATTENDING MD: CESAR: AGE: 40 MARITAL STATUS: M DC PLAN ID: [id number] FACILITY: [facility] PRINTED ON: 11/04/20 16:14 CT All edits/amendments must be made on the electronic document DICTATION DATE: 11/04/201613 DIRECTOR SOFTWARE DEVELOPMENT: KAMRAN 11/04/201613 RPT#: [id number] DC DATE: STATUS: ADM IN [facility] [address] [place] [address] END OF REPORT
[2020-11-04 16:18] VITALS: BP 110/70
--- NOTE | 2020-11-04 18:27 | NUR ---
PATIENT STATES THAT SHE TOLERATED HER SUPPER WITH NO NAUSEA. WILL DISCHARGE HOME. IV CATH REMOVED WITH TIP INTACT. VERBRAL AND WRITTEN DISCHARGE INSTRUCTIONS GIVEN TO PATIENT. DISCHARGED HOME VIA WHEELCHAIR.
--- NOTE | 2020-11-04 18:45 | MORECARE ---
CASE MANAGEMENT DISCHARGE SUMMARY PATIENT: ALEENA VANG UNIT: [id number] ADM DATE: 11/04/20 AGE: 40 : 82 SEX: F ROOM/BED: D.2130 AUTHOR: STEVEN,DOC PHYSICIAN: REFERRING PHYSICIAN: NICK MELARA MD DATE OF SERVICE: 11/04/20 Case Management Discharge Planning Summary COMMENTS ENTERED DATE: 11/04/20 16:03 CT COMMENT TYPE: Discharge Planning REVIEWER: Adrianne Desouza CM met with patient to complete discharge planning assessment and offer availability of needed services. Patient states that she lives independently at home with her spouse prior to admission. Pt verified that home environment is safe and has electricity and running water. Patient denies need for transportation and state that they have funds for services and medications if needed. PCP is Dr Granados and patient uses [facility] for her pharmacy. CM offered and discussed home health, rehab services, and need for any medical equipment. Patient did not express need for offered services at this time. Transportation home will be provided by her spouse Herminio Vang ([phone]) when discharged. Patient voices not needs at this time. DCP REVIEW SUMMARY ANTICIPATED D/C DATE: 11/04/2020 EXPECTED LOS : 1 CASE STATUS: DCP Initiated INITIAL REVIEW: 11/04/2020 INITIAL REVIEWER: Adrianne Desouza FINAL DISCHARGE DISPOSITION: : FINAL REVIEWER: FINAL REVIEW DATE: [facility] Focus Questions & Answers DCP Screen QUESTION: ANSWER High Risk Factors: : None Walking limitation: Patient stated self rated walking limitation present? : No Age: : 19 - 45 Prior living environment: : Lives with others Disability ranking: : Grade 1: No significant disability DCP Evaluation QUESTION: ANSWER Patient and/or caregiver agree upon recommended discharge plan? : Yes Family / Caregiver's ability to cope with chronic illness: : a. Adequate (ability to meet patient's medical needs, ensures patient attends medical appts.) Patient's current cognitive status: : *Oriented to person, place, situation, time and present Patient's ability to cope with chronic illness : d. No chronic illness Does the patient have the ability to pay for or attain post discharge needs / services? : Yes Functional screen assessment: : Basic needs can adequately be met by self Family / Caregiver's ability to cope with chronic illness: : a. Adequate (ability to meet patient's medical needs, ensures patient attends medical appts.) Physical Status: : Independent with ADL's Equipment needed for post hospitalization: : None Is there a likelihood that the patient will require additional services to return to the preadmission environment? : Yes Living Arrangements: : Home with Spouse/Significant Other Results of this evaluation have been discussed with: : Patient Patient with capacity for self-care or can be cared for in same environment as prior to hospitalization? 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 : N/A Pharmacy name(s): : [facility] Planned post hospital services covered by insurance plan? : N/A Does Patient have transportation to get home and to follow-up medical appointments when discharged from the hospital? : Yes Would patient like to participate in any Care Coordination programs (if applicable): : Not applicable Does the patient have electricity at home? : Yes Does the patient have running water in their house? : Yes Equipment in use: : None Mental health screen: : No mental health history Psychosocial status: : Independent adult (18-64) Abuse/Neglect: : None Resources / Services in place: : None DCP Re-evaluation QUESTION: ANSWER Would patient like to participate in any Care Coordination programs (if applicable): : Not applicable PATIENT: ALEENA VANG ENCOUNTER: [id number] MEDICAL RECORD#: [id number] ADMISSION DATE: 11/04/2020 DISCHARGE DATE: 11/04/2020 ATTENDING MD: CESAR: AGE: 40 MARITAL STATUS: M DC PLAN ID: [id number] FACILITY: [facility] PRINTED ON: 11/04/20 18:45 CT All edits/amendments must be made on the electronic document DICTATION DATE: 11/04/201844 AN/SQQ 89(V)15 SONAR SYSTEM JOURNEYMAN: KAMRAN 11/04/201844 RPT#: [id number] DC DATE:11/04/20 STATUS: DIS IN [facility] [address] [place] [address] END OF REPORT
--- NOTE | 2020-11-04 18:53 | NUR ---
WHEN I WAS DISCHARGING PATIENT, I NOTICED SHE HAD A HOODIE ON WITH A CANNABIS LEAF ON IT. 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 SHE STATES THAT SHE HAS A MEDICAL CARD FOR IT AND THAT THE DOCTORS HAVE TOLD HER THIS CAN CAUSE IT. AGAIN, I TOLD HER THAT I MEANT NO DISREPECT WHEN I WAS ASKING HER.
== END 2020-11-04 18:41 | disposition home or self-care (01) | DRG 392 ==
LOC: D.ER 23:01 → D.M2 11-04 02:01
PROVIDERS: Emergency Medicine; ADMIT Family Medicine; ATTEND Family Medicine
DX: K31.84 Gastroparesis (principal); E87.2 Acidosis; M79.7 Fibromyalgia

== ENCOUNTER 2020-11-05 14:03 | Emergency (ER) | payer MEDICARE, MEDICAID ==
[2020-11-04 02:50] VITALS: BMI 18.5
[~2020-11-05 14:03] MED LIST changes: +DEPO SHOT
== END 2020-11-05 15:16 | disposition left against medical advice (07) ==
LOC: D.ER 14:03
DX: R11.2 Nausea with vomiting, unspecified (principal)

== ENCOUNTER 2020-11-06 20:45 | Emergency (ER) | payer MEDICARE, MEDICAID ==
[~2020-11-06] VITALS: Ht 175.3 cm; Wt 56.8 kg
[2020-11-06 20:58] VITALS: Ht 175.3 cm; Wt 56.8 kg
[2020-11-06 21:35] LABS: BILIRUBIN NEGATIVE (NEGATIVE); KETONE LARGE mg/dL (NEGATIVE); NITRITE NEGATIVE (NEGATIVE); UROBILINOGEN 4 mg/dL (< 2)
[2020-11-06 21:36] LABS: HCG URINE NEGATIVE (NEGATIVE)
[2020-11-06 21:37] LABS: BASOPHILS 0.2 % (0-2); EOSINOPHILS 0.1 % (0-7); HEMOGLOBIN 13.8 g/dL (12-16); LYMPHOCYTES 13.9 % (15-50); MCH 28.2 pg (26.0-34.0); MCHC 32.8 g/dL (31.0-37.0); MEAN PLATELET VOLUME 10.8 fL (7.4-10.4); MONOCYTES 9.5 % (2-11); NEUTROPHILS 76.3 % (40-80); RBC 4.89 10x6/uL (4.00-5.40); RDW 13.1 % (11.5-14.5); WBC 12.5 10x3/uL (4.8-10.8)
[2020-11-06 21:39] LABS: PLATELET COUNT 254 10x3/uL (130-400)
[2020-11-06 21:53] LABS: UDS - AMPHET NEGATIVE QUAL (NEGATIVE); UDS - BARB NEGATIVE QUAL (NEGATIVE); UDS - BENZO NEGATIVE QUAL (NEGATIVE); UDS - COCAINE NEGATIVE QUAL (NEGATIVE); UDS - OPIATE NEGATIVE QUAL (NEGATIVE); UDS - PCP NEGATIVE QUAL (NEGATIVE); UDS - THC POSITIVE QUAL (NEGATIVE)
[2020-11-06 21:54] LABS: ALBUMIN 4.9 g/dL (3.4-5.0); ANION GAP 16.7 mmol/L (8-16); BILIRUBIN - TOTAL 2.72 mg/dL (0.2-1.3); CALCIUM 9.3 mg/dL (8.5-10.1); MAGNESIUM - SERUM 2.2 mg/dL (1.8-2.4); PROTEIN - SERUM 8.6 g/dL (6.4-8.2); THYROID STIMULATING HORMONE 2.23 uIU/mL (0.36-3.74)
[2020-11-06 21:56] LABS: POTASSIUM - SERUM 2.7 mmol/L (3.5-5.1)
--- NOTE | 2020-11-06 22:38 | NUR ---
PATIENT IN W C/O N/V X 3 DAYS, STATES SHE HAS HAD TRIPS HERE AND STILL ISN'T FEELING ANY BETTER. ACTIVLY HAVING N/V, ABD PAIN MORE ON THE LEFT, TENDER TO THE TOUCH,
[2020-11-06 23:00] VITALS: BP 126/80
--- NOTE | 2020-11-07 00:15 | NUR ---
PATIENT STATES SHE NEEDS TO LEAVE AMA, I MADE HER AWARE THAT HER K+ WAS LOW AND SHE NEEDED ANOTHER BAG K+, SHE STATED SHE WOULD FOLLOW UP WITH HER DOCTOR. STATES HER SON WAS INVOLVED IN AN ACCIDENT AND SHE NEEDED TO GO, HER WILL PICK HER UP. YANETH AHUMADA NOTIFIED, DR. YI NOTIFIED, RADHA CRORALES FOREIGN LAW CONSULTANT NOTIFIED. DISCUSSED WITH ANUM CORRALES CHARGE TO COMPLETE C-STAR.
[2020-11-07 00:23] VITALS: BP 127/82
[2020-11-08 10:13] LABS: HEPATITIS C ANTIBODY <0.1 (0.0-0.9)
== END 2020-11-07 00:45 | disposition left against medical advice (07) ==
LOC: OBSVTIME → D.ER 20:45 → D.EDHOLD 22:42 → D.ER 22:42 → OBSVTIME 22:43 → D.EDHOLD 11-07 00:45 → D.ER 11-07 00:45
PROVIDERS: Family Medicine
DX: R11.2 Nausea with vomiting, unspecified (principal); B17.9 Acute viral hepatitis, unspecified; E87.6 Hypokalemia; R62.7 Adult failure to thrive; R79.89 Other specified abnormal findings of blood chemistry; M79.7 Fibromyalgia